=== PATIENT | male | born 1960 | race Caucasian/White ===

== ENCOUNTER 2017-01-13 08:37 | Emergency (ER) | payer OTHER ==
[~2017-01-13 08:37] MED LIST: BLOOD PRESSURE PILL; HYDRODIURIL25 MG PO; LISINOPRIL HCTZ1 TA1 PO; NAPROSYN500 MG PO; NORCO 325 MG-51 TAB PO; PARAFON FORTE500 MG PO
[2017-01-13] MEDS ORDERED: LISINOPRIL10 M1 PO (08:42)
[2017-01-13] MEDS ORDERED: ZESTRIL10 MG PO (08:56)
[2017-01-13] MEDS ORDERED: LISINOPRIL HCTZ1 TA1 PO (08:56)
== END 2017-01-13 09:01 | disposition home or self-care (01) ==
LOC: ED 08:37
DX: Z76.0 Encounter for issue of repeat prescription (principal); I10 Essential (primary) hypertension; Z79.899 Other long term (current) drug therapy

== ENCOUNTER → 2017-08-29 | Outpatient (CLI) | payer OTHER ==
[~2017-08-29] MED LIST changes: +LISINOPRIL10 M1 PO; +ZESTRIL10 MG PO
[2017-08-29 10:27] LABS: BASO % 0.4 % (0.0-1.0); EOS # 0.3 10*3/uL (0.0-0.4); EOS % 2.6 % (1.0-4.0); HEMATOCRIT 40.4 % (42.0-52.0); HEMOGLOBIN 12.3 g/dl (14.0-18.0); LYMPH # 3.4 10*3/uL (1.3-4.4); LYMPH % 30.9 % (27.0-41.0); MEAN CELL VOLUME 80.3 fl (80.0-94.0); MEAN CORPUSCULAR HGB 24.5 pg (27.0-31.0); MEAN CORPUSCULAR HGB CONC 30.4 g/dl (33.0-37.0); MEAN PLATELET VOLUME 8.9 fl (9.6-12.3); MONO # 0.7 10*3/uL (0.1-1.0); MONO % 6.3 % (3.0-9.0); NEUT # 6.6 10*3/uL (2.3-7.9); NEUT % 59.5 % (47.0-73.0); PLATELET COUNT AUTOMATED 449 10*3/uL (130-400); RED BLOOD COUNT 5.03 10*6/uL (4.50-5.90); RED CELL DISTRI WIDTH 16.6 % (0-14.5)
[2017-08-29 10:53] LABS: ALBUMIN 3.2 gm/dl (3.1-4.5); CREATININE 1.54 mg/dL (0.70-1.30); POTASSIUM 3.8 mmol/L (3.5-5.1); TOTAL PROTEIN 8.3 gm/dL (6.4-8.2)
[2017-08-30 15:08] LABS: ANTICARDIOLIPIN AB, IGG, QN <9 GPL U/mL (0-14); ANTICARDIOLIPIN AB, IGM, QN <9 MPL U/mL (0-12); CARDIOLIPIN AB IGA 161836 <9 APL U/mL (0-11)
[2017-08-30 18:07] LABS: BETA-2 GLYCOPROTEIN I AB,IGA <9 (0-25); BETA-2 GLYCOPROTEIN I AB,IGG 11 (0-20); BETA-2 GLYCOPROTEIN I AB,IGM <9 (0-32)
[2017-08-31 17:07] LABS: DILUTE PROTHROMBIN TIME 51.2 sec (0.0-55.0); DPT CONFIRM RATIO 1.24 Ratio (0.00-1.40); LUPUS DRVVT 49.3 sec (0.0-47.0); LUPUS REFLEX INTERPRETATION Comment: (.); PROTEIN S-FUNCTIONAL 164525 81 % (63-140); PTT-LA 32.2 sec (0.0-51.9); THROMBIN TIME 21.9 sec (0.0-23.0)
== END | disposition home or self-care (01) ==
LOC: US 07:30 → LAB 08:48
PROVIDERS: Internal Medicine Hematology & Oncology
DX: I26.99 Other pulmonary embolism without acute cor pulmonale (principal)

== ENCOUNTER → 2017-12-08 | Outpatient (CLI) | payer OTHER ==
[2017-12-08 09:00] LABS: BILIRUBIN NEGATIVE (NEGATIVE); BLOOD TRACE-LYSED (NEGATIVE); CLARITY SL CLOUDY (CLEAR); COLOR YELLOW (YELLOW); GLUCOSE NEGATIVE (NEGATIVE); KETONE NEGATIVE (NEGATIVE); LEUKO ESTERASE NEGATIVE (NEGATIVE); NITRITE NEGATIVE (NEGATIVE); SPECIFIC GRAVITY 1.025 (1.005-1.030); UROBILINOGEN 0.2 E.U./dl (0.2-1.0)
[2017-12-08 09:21] LABS: BASO # 0.1 10*3/uL (0.0-0.1); BASO % 0.6 % (0.0-1.0); EOS # 0.3 10*3/uL (0.0-0.4); EOS % 2.5 % (1.0-4.0); HEMATOCRIT 43.7 % (42.0-52.0); HEMOGLOBIN 13.4 g/dl (14.0-18.0); LYMPH # 3.7 10*3/uL (1.3-4.4); LYMPH % 31.5 % (27.0-41.0); MEAN CELL VOLUME 83.7 fl (80.0-94.0); MEAN CORPUSCULAR HGB 25.7 pg (27.0-31.0); MEAN CORPUSCULAR HGB CONC 30.7 g/dl (33.0-37.0); MEAN PLATELET VOLUME 9.3 fl (9.6-12.3); MONO # 0.7 10*3/uL (0.1-1.0); MONO % 6.2 % (3.0-9.0); NEUT # 6.9 10*3/uL (2.3-7.9); NEUT % 58.9 % (47.0-73.0); PLATELET COUNT AUTOMATED 404 10*3/uL (130-400); RED BLOOD COUNT 5.22 10*6/uL (4.50-5.90); RED CELL DISTRI WIDTH 14.5 % (0-14.5); WHITE BLOOD COUNT 11.7 10*3/uL (4.8-10.8)
[2017-12-08 09:32] LABS: ALBUMIN 3.3 gm/dl (3.1-4.5); CREATININE 1.53 mg/dL (0.70-1.30); PHOSPHOROUS 3.7 mg/dL (2.5-4.9); POTASSIUM 3.4 mmol/L (3.5-5.1)
[2017-12-08 10:15] LABS: PTH INTACT 121.4 pg/mL (14.0-72.0); VITAMIN D, 25-HYDROXY 18.5 ng/mL (30-100)
[2017-12-08 10:34] LABS: BACTERIA 1+; EPITHELIAL CELLS 0-2; WBC 0-2 wbc/hpf (0-5)
== END | disposition home or self-care (01) ==
LOC: LAB 08:38
PROVIDERS: Internal Medicine Nephrology
DX: N18.3 Chronic kidney disease, stage 3 (moderate) (principal)

== ENCOUNTER → 2018-05-24 | Outpatient (CLI) | payer OTHER ==
[2018-05-24 09:38] LABS: BASO # 0.1 10*3/uL (0.0-0.1); BASO % 0.5 % (0.0-1.0); EOS # 0.4 10*3/uL (0.0-0.4); EOS % 2.8 % (1.0-4.0); HEMATOCRIT 36.6 % (42.0-52.0); HEMOGLOBIN 11.6 g/dl (14.0-18.0); LYMPH # 2.9 10*3/uL (1.3-4.4); LYMPH % 22.4 % (27.0-41.0); MEAN CELL VOLUME 83.8 fl (80.0-94.0); MEAN CORPUSCULAR HGB 26.5 pg (27.0-31.0); MEAN CORPUSCULAR HGB CONC 31.7 g/dl (33.0-37.0); MEAN PLATELET VOLUME 8.5 fl (9.6-12.3); MONO # 0.9 10*3/uL (0.1-1.0); MONO % 6.7 % (3.0-9.0); NEUT # 8.7 10*3/uL (2.3-7.9); NEUT % 67.3 % (47.0-73.0); PLATELET COUNT AUTOMATED 468 10*3/uL (130-400); RED BLOOD COUNT 4.37 10*6/uL (4.50-5.90); RED CELL DISTRI WIDTH 14.2 % (0-14.5)
[2018-05-24 09:39] LABS: BILIRUBIN NEGATIVE (NEGATIVE); BLOOD TRACE-INTACT (NEGATIVE); CLARITY CLEAR (CLEAR); COLOR YELLOW (YELLOW); GLUCOSE NEGATIVE (NEGATIVE); KETONE NEGATIVE (NEGATIVE); LEUKO ESTERASE NEGATIVE (NEGATIVE); NITRITE NEGATIVE (NEGATIVE); UROBILINOGEN 0.2 E.U./dl (0.2-1.0)
[2018-05-24 10:04] LABS: ALBUMIN 3.1 gm/dl (3.1-4.5); CREATININE 1.63 mg/dL (0.70-1.30); PHOSPHOROUS 3.2 mg/dL (2.5-4.9); POTASSIUM 3.4 mmol/L (3.5-5.1)
[2018-05-24 10:36] LABS: VITAMIN D, 25-HYDROXY 24.7 ng/mL (30-100)
[2018-05-24 10:37] LABS: PTH INTACT 128.7 pg/mL (18.5-88.0)
== END | disposition home or self-care (01) ==
LOC: LAB 09:12
PROVIDERS: Internal Medicine Nephrology
DX: N25.81 Secondary hyperparathyroidism of renal origin (principal); N18.3 Chronic kidney disease, stage 3 (moderate)

== ENCOUNTER → 2018-08-04 | Outpatient (CLI) | payer BC ==
[~2018-08-04] MED LIST changes: +ACTOS15 M1 PO; +ASPIRIN ADULT L81 M2 PO; +VITAMIN D50000 UNIT PO; +XARELTO1 EACH PO; +ZESTORETIC 20-1 EACH PO
== END | disposition home or self-care (01) ==
LOC: WOUNDCARE 01:50
DX: I87.313 Chronic venous hypertension (idiopathic) with ulcer of bilateral lower extremity (principal); L97.811 Non-pressure chronic ulcer of other part of right lower leg limited to breakdown of skin; L97.821 Non-pressure chronic ulcer of other part of left lower leg limited to breakdown of skin; I73.9 Peripheral vascular disease, unspecified; I87.2 Venous insufficiency (chronic) (peripheral); Z87.891 Personal history of nicotine dependence

== ENCOUNTER → 2018-08-07 | Outpatient (CLI) | payer BC | END | disposition home or self-care (01) | LOC: WOUNDCARE 08:26 | DX: I87.313 Chronic venous hypertension (idiopathic) with ulcer of bilateral lower extremity (principal); L97.811 Non-pressure chronic ulcer of other part of right lower leg limited to breakdown of skin; L97.821 Non-pressure chronic ulcer of other part of left lower leg limited to breakdown of skin; I73.9 Peripheral vascular disease, unspecified; Z87.891 Personal history of nicotine dependence ==

== ENCOUNTER → 2018-08-13 | Outpatient (CLI) | payer BC | END | disposition home or self-care (01) | LOC: WOUNDCARE 02:21 | DX: I87.313 Chronic venous hypertension (idiopathic) with ulcer of bilateral lower extremity (principal); L97.822 Non-pressure chronic ulcer of other part of left lower leg with fat layer exposed; L97.811 Non-pressure chronic ulcer of other part of right lower leg limited to breakdown of skin; I73.9 Peripheral vascular disease, unspecified; Z87.891 Personal history of nicotine dependence ==

== ENCOUNTER 2018-08-18 14:55 | Inpatient (IN) | payer BC ==
[~2018-08-18] VITALS: Ht 172.7 cm; Wt 123.4 kg
--- NOTE | ~2018-08-18 | EKG ---
[facility], [place] ELECTROCARDIOGRAM REPORT NAME: MIGUEL ANGEL NETTLES JR UNIT #: [id number] ROOM: 411 DOCTOR: SU DRAFT REPORT BIRTHDATE: [birth year] [facility] Test Date: 2018-08-18 Test Time: 15:35:55 Pat Name: MIGUEL ANGEL NETTLES Department: Room: 411 Gender: M Supervisor [employer]: : 1960 Requested By: JOSE CLEVELAND PA-C Order Number: [id number] Reading MD: Víctor Schmid MD Measurements Intervals [place] Rate: 86 P: 49 MN: 188 QRS: 29 QRSD: 101 T: -6 QT: 396 QTc: 474 Interpretive Statements Sinus rhythm Multiple ventricular premature complexes Low voltage, precordial leads Borderline T abnormalities, inferior leads Baseline wander in lead(s) V4 No previous ECG available for comparison Electronically Signed On 08-20-2018 11:21:57 PST by Víctor Schmid MD CM:EKGRPT:ELECTROCARDIOGRAM REPORT [id number] JOSE CLEVELAND PA-C EPIPHANY DRAFT REPORT JOSE CLEVELAND PA-C
--- NOTE | 2018-08-18 07:05 | NUR ---
BEDSIDE REPORT OBTAINED FROM MARY. PATIENT IS AWAKE & ALERT, PATIENT VOICED NO COMPLAINTS. FAMILY AT BEDSIDE, PARTICIPATED IN REPORT. NO S&S OF DISTRESS NOTED, RESP ARE ERND ON ROOM AIR. BED IS LOCKED IN LOWEST POSITION. CALL LIGHT LEFT WITHIN REACH.
[~2018-08-18 14:55] MED LIST changes: -ACTOS15 M1 PO; -ASPIRIN ADULT L81 M2 PO; -VITAMIN D50000 UNIT PO; -XARELTO1 EACH PO; -ZESTORETIC 20-1 EACH PO
[2018-08-18 14:58] VITALS: BP 151/75
[2018-08-18 15:34] LABS: BASO # 0.1 10*3/uL (0.0-0.1); BASO % 0.4 % (0.0-1.0); EOS # 0.3 10*3/uL (0.0-0.4); EOS % 2.4 % (1.0-4.0); HEMATOCRIT 38.2 % (42.0-52.0); HEMOGLOBIN 11.7 g/dl (14.0-18.0); LYMPH # 3.2 10*3/uL (1.3-4.4); LYMPH % 23.8 % (27.0-41.0); MEAN CELL VOLUME 82.2 fl (80.0-94.0); MEAN CORPUSCULAR HGB 25.2 pg (27.0-31.0); MEAN CORPUSCULAR HGB CONC 30.6 g/dl (33.0-37.0); MEAN PLATELET VOLUME 8.7 fl (9.6-12.3); MONO # 0.9 10*3/uL (0.1-1.0); MONO % 6.3 % (3.0-9.0); NEUT % 66.7 % (47.0-73.0); PLATELET COUNT AUTOMATED 493 10*3/uL (130-400); RED BLOOD COUNT 4.65 10*6/uL (4.50-5.90); RED CELL DISTRI WIDTH 14.6 % (0-14.5); WHITE BLOOD COUNT 13.5 10*3/uL (4.8-10.8)
[2018-08-18 15:42] LABS: INTERNATIONAL NORM RATIO 1.1 (2.0-3.5)
[2018-08-18 15:56] LABS: ALBUMIN 2.7 gm/dl (3.1-4.5); ALKALINE PHOSPHATASE 147 U/L (45-117); BUN 53 mg/dl (7-24); CHLORIDE 104 mmol/L (98-107); CREATININE 2.62 mg/dL (0.70-1.30); SGOT/AST 17 IU/L (3-35); SGPT/ALT 17 U/L (12-78); SODIUM 141 mmol/L (136-145)
[2018-08-18 16:02] LABS: TROPONIN I < 0.015 ng/ml (<0.045)
[2018-08-18 17:46] VITALS: BP 115/66
--- NOTE | 2018-08-18 18:00 | NUR ---
Time: 1799 A 58 year old MALE admitted to 4E under services of JOLLY VALENTINE DO, Pt. arrived via wheel chair from ER. Chief complaint: BLOOD CLOT IN LOWER EXTREMITY. BELÉN WARD
[2018-08-18] MEDS ORDERED: ZESTORETIC 20-1 EACH PO (18:01)
--- NOTE | 2018-08-18 18:01 | NUR ---
RECEIVED PATIENT FROM ER. AT BEDSIDE. ADMISSION COMPLETE
[2018-08-18] MEDS ORDERED: VITAMIN D50000 UNIT PO (18:02)
--- NOTE | 2018-08-18 18:05 | NUR ---
CALLED PATIENTS PHARMACY FOR UPDATED MEDICATION LIST, UPDATED ON HOME MEDIATION LIST. NOTIFY PHYSICIAN OF ADMISSION.NOTIFIED OF OPEN WOUNDS TO BILATERAL LOWER EXTREMITIES
--- NOTE | 2018-08-18 19:05 | NUR ---
BEDSIDE REPORT OBTAINED FROM MARY. PATIENT IS AWAKE & ALERT, VOICED NO COMPLAINTS. FAMILY AT BEDSIDE, PARTICIPATED IN REPORT. NO S&S OF DISTRESS NOTED, RESP ARE ERND ON ROOM AIR. BED IS LOCKED IN LOWEST POSITION, CALL LIGHT LEFT WITHIN REACH.
[2018-08-18 20:00] VITALS: BP 136/80
--- NOTE | 2018-08-18 20:40 | NUR ---
INFORMED OF PODIATRY CONSUST. STATE TO PLACE STAT ARTERIAL US BLE IN AM 08/19.
--- NOTE | 2018-08-18 20:52 | NUR ---
HEPARIN BOLUS OF 5,000 UNITS INITIATED PER HEPARIN PROTOCOL, @18U/KG/HR 22.1CC/HR. DOREEN PEDRO CONFIRMED.
--- NOTE | 2018-08-18 21:34 | NUR ---
OFFICE CALLED AND INFORMED OF CONSULT. STATED THEY WILL LEAVE HIM A MESSAGE.
--- NOTE | 2018-08-18 21:42 | NUR ---
INFORMED OF CONSULT. NO NEW ORDERS AT THIS TIME.
[2018-08-19] VITALS: BP 96/72
[2018-08-19 03:19] LABS: BASO # 0.1 10*3/uL (0.0-0.1); BASO % 0.5 % (0.0-1.0); EOS # 0.4 10*3/uL (0.0-0.4); EOS % 2.6 % (1.0-4.0); HEMATOCRIT 34.8 % (42.0-52.0); HEMOGLOBIN 10.5 g/dl (14.0-18.0); MEAN CELL VOLUME 82.9 fl (80.0-94.0); MEAN CORPUSCULAR HGB CONC 30.2 g/dl (33.0-37.0); MEAN PLATELET VOLUME 8.4 fl (9.6-12.3); MONO # 0.9 10*3/uL (0.1-1.0); NEUT % 59.5 % (47.0-73.0); PLATELET COUNT AUTOMATED 421 10*3/uL (130-400); RED CELL DISTRI WIDTH 14.7 % (0-14.5); WHITE BLOOD COUNT 13.5 10*3/uL (4.8-10.8)
[2018-08-19 03:30] LABS: ACT PARTIAL THROMBO TIME 52.3 SECONDS (20.8-31.5); INTERNATIONAL NORM RATIO 1.3 (2.0-3.5)
--- NOTE | 2018-08-19 03:30 | NUR ---
HEPARIIN DRIP CHANGED PER PROTOCOL. NOW FLOWING AT 24.6CC/HR @20U/KG/HR. DOREEN PEDRO PRESENT FOR DOSAGE CHANGES.
[2018-08-19 03:33] LABS: CREATININE 2.2 mg/dL (0.70-1.30); POTASSIUM 3.7 mmol/L (3.5-5.1)
[2018-08-19 03:43] LABS: THYROID STIM HORMONE (HS) 1.53 uIU/ml (0.358-4.75)
--- NOTE | 2018-08-19 04:00 | NUR ---
SLEEPING. CALL LIGHT LEFT WITHIN REACH
--- NOTE | 2018-08-19 04:26 | NUR ---
24 HR chart check completed.
--- NOTE | 2018-08-19 06:06 | NUR ---
INFORMED THAT PATIENT IS REQUESTING SOMETHING FOR HIS COUGH. STATES HE WILL PLACE AN ORDER.
[2018-08-19 06:59] LABS: VITAMIN D, 25-HYDROXY 21.4 ng/mL (30-100)
--- NOTE | 2018-08-19 07:48 | NUR ---
Spoke with Dr. Wiseman regarding patient wanting to follow up with Dr. Florentino and not podiatry while he is here. Patient stated he follows with him in the wound care center and wants to continue following while he is inpatient.
--- NOTE | 2018-08-19 07:49 | NUR ---
YOON QUEZADAMIGUEL ANGEL [id number] Please refer to the physician's history and physical for past medical history, comorbid conditions, and allergies. Diagnosis: DVT Catrachito Score: 22,LOW OR NO RISK WOUND DESCRIPTIONS: Location of the wound: left medial lower leg Thickness: Full Size: 4.7cm x 1.8cm x 0.1cm Tunneling: none Undermining: none Sinus Tract: none Presence of Exudate: Serosanguineous Amount: Moderate Color: Yellow, red Odor: None Periwound Skin Appearance: Erythema Wound edges: approximated Pain (associated with wound): none at time of assessment How does patient state this happened? pt stated he has been following in the wound care center for these areas for a little while and wants to continue following with them. Location of the wound: right anterior aspect of lower leg proximal Thickness: Full Size: 6.0cm x 3.2cm x 0.1cm Tunneling: none Undermining: none Sinus Tract: none Presence of Exudate: Serosanguineous Amount: Moderate Color: Yellow, red Odor: None Periwound Skin Appearance: Normal Wound edges: approximated Pain (associated with wound): none at time of assessment How does patient state this happened? pt stated he has been following in the wound care center for these areas for a little while and wants to continue following with them. Location of the wound: right anterior aspect of lower leg distal Thickness: Full Size: 1.7cm x 0.7cm x <0.1cm Tunneling: none Undermining: none Sinus Tract: none Presence of Exudate: Serosanguineous Amount: Moderate Color: Yellow, red Odor: None Periwound Skin Appearance: Erythema Wound edges: approximated Pain (associated with wound): none at time of assessment How does patient state this happened? pt stated he has been following in the wound care center for these areas for a little while and wants to continue following with them. Location of the wound: right lateral lower extremity proximal Thickness: Full Size: 0.4cm x 0.6cm x <0.1cm Tunneling: none Undermining: none Sinus Tract: none Presence of Exudate: Serosanguineous Amount: Moderate Color: Yellow, red Odor: None Periwound Skin Appearance: Erythema Wound edges: approximated Pain (associated with wound): none at time of assessment How does patient state this happened? pt stated he has been following in the wound care center for these areas for a little while and wants to continue following with them. Surface the patient is resting on: Isoflex SKIN PREVENTION RECOMMENDATION: 1. Pressure redistribution support surface as appropriate 2. Elevate heels 3. Remove boots/TEDS every shift and reapply 4. Head of bed 30 degrees as tolerated 5. Assess nutrition and hydration 6. Manage moisture 7. Avoid the use of containment devices while in bed 8. Use absorptive products on surfaces limit layers of linens on bed 9. Turn and reposition every 1-2 hours in bed and every 1 hour in chair as tolerated 10. Weight shifts every 15 minutes while up in chair 11. Offloading with pillows or device to keep heels elevated off bed 12. Monitor skin at least every shift 13. Inspect under medical devices twice a day WOUND TREATMENT RECOMMENDATIONS: Venous and arterial studies of BLE Consult Dr. Florentino for possible debridement per pt request follows in wound care center. Consult podiatry for toenail care. Full thickness guidelines: Cleanse right lateral lower extremity proximal, right anterior aspect of lower leg distal, right anterior aspect of lower leg proxima and left medial lower leg with nss and apply sureprep around the wound therahoney to wound bed cover with maxorb then apply abd pad and lightly wrap with kerlix daily and prn for soiling. Patient wants appointment cancelled in the wound care center for tomorrow and rescheduled for next in the am with Dr. Florentino.
[2018-08-19 08:00] VITALS: BP 118/62
--- NOTE | 2018-08-19 08:45 | NUR ---
Appointment for wound care center on 08/20/18 was cancelled since patient is inpatient and rescheduled for 08/27/18 at 8:00am.
--- NOTE | 2018-08-19 09:00 | NUR ---
Nonprofit Manager in to talk to patient. Patient states lives at home with . There are few steps in the home. Physician: martin billings [facility]: [facility] [place] health services: none Patient's level of ADLs: INDEPENDENT Patient has working utilities: all working DME: none Follow-up physician's appointment after d/c: will be made by hospitalist nurse director upon discharge Does patient want to access PORTAL?: no Discharge plan discussed with patient, patient lives at home with , is independent in adls and ambulation, works, drives, patient states he will be going home when able, patient also stated he would like to follow up in the wound clinic when discharged, patient denies any other needs at this time. DELICIA NATION
[2018-08-19 09:09] LABS: ACT PARTIAL THROMBO TIME 54.9 SECONDS (20.8-31.5); INTERNATIONAL NORM RATIO 1.2 (2.0-3.5)
--- NOTE | 2018-08-19 09:33 | NUR ---
Dr. Wiseman notified of wound care recommendations.
[2018-08-19 12:00] VITALS: BP 126/77
[2018-08-19] MEDS ORDERED: ASPIRIN ADULT L81 M2 PO (13:51)
[2018-08-19 16:00] VITALS: BP 141/71
[2018-08-19 20:00] VITALS: BP 144/83
--- NOTE | 2018-08-19 20:06 | NUR ---
TESSALON PERLES GIVEN FOR COUGH.
--- NOTE | 2018-08-19 21:00 | NUR ---
DENIES COUGH. FELA MA EFFECTIVE.
[2018-08-20] VITALS: BP 142/84
[2018-08-20 06:25] LABS: ALBUMIN 2.3 gm/dl (3.1-4.5); CREATININE 1.65 mg/dL (0.70-1.30); POTASSIUM 3.5 mmol/L (3.5-5.1)
[2018-08-20 06:28] LABS: BASO # 0.1 10*3/uL (0.0-0.1); BASO % 0.5 % (0.0-1.0); EOS # 0.4 10*3/uL (0.0-0.4); EOS % 3.1 % (1.0-4.0); LYMPH # 3.4 10*3/uL (1.3-4.4); MEAN CELL VOLUME 82.8 fl (80.0-94.0); MEAN CORPUSCULAR HGB 25.3 pg (27.0-31.0); MEAN CORPUSCULAR HGB CONC 30.6 g/dl (33.0-37.0); MONO # 0.8 10*3/uL (0.1-1.0); MONO % 7.1 % (3.0-9.0); NEUT # 7.1 10*3/uL (2.3-7.9); PLATELET COUNT AUTOMATED 463 10*3/uL (130-400); RED BLOOD COUNT 4.35 10*6/uL (4.50-5.90); RED CELL DISTRI WIDTH 14.7 % (0-14.5); WHITE BLOOD COUNT 11.8 10*3/uL (4.8-10.8)
[2018-08-20 08:00] VITALS: BP 138/70
--- NOTE | 2018-08-20 09:27 | NUR ---
PHYSICAL THERAPY 1:1 Time: Pain on a scale of 0-10 > Prior to treatment: 0/10 Post treatment: 0/10 Progress note: Pt seen on this date for initial physical therapy assessment; please refer to pt's chart for details. Pt performed supine <-> sit with I. He performed sit <-> stand with I. He ambulated through hallway for 250' x 2 with 1 standing rest break due ot fatigue/SOB. He demonstrate shortened strides and slowed speed while walking with significant lateral sway. He demonstrated F/F+ balance. He has 27 steps to enter his home but this was not completed at this time due to fatigue with the walking. ANNIA TAYLOR S PT
--- NOTE | 2018-08-20 09:30 | NUR ---
Dr. Wiseman notified of wound care recommendations.
--- NOTE | 2018-08-20 10:52 | NUR ---
NOTIFIED OF CONSULT FOR NAIL CARE
[2018-08-20] MEDS ORDERED: ACTOS15 M1 PO (11:50)
[2018-08-20] MEDS ORDERED: XARELTO1 EACH PO (11:50)
[2018-08-20 12:00] VITALS: BP 124/64
--- NOTE | 2018-08-20 12:53 | NUR ---
Nutritional Support Services Notes: Instucted patient on 1800 calorie diabetic diet. Diet copy given to patient. Patient normally eats 1 meal daily, discussed risks. Encouraged 3 meals daily and a night snack with more regular meal times. Patient asked questions about specific food choices. does cooking at home and will follow up with as able. Encouraged follow up if needed. Ria NG Dietetic Student Meseret Cruz RDN, LD
--- NOTE | 2018-08-20 15:18 | NUR ---
Discharge instructions reviewed with patient/family. Patient receptive and verbalizes understanding. Follow-up care arranged. Written instructions given to patient/family. RUBEN MUNOZ
[2018-08-21 14:11] LABS: ANTICARDIOLIPIN AB, IGG, QN <9 GPL U/mL (0-14); ANTICARDIOLIPIN AB, IGM, QN <9 MPL U/mL (0-12); CARDIOLIPIN AB IGA 161836 <9 APL U/mL (0-11)
[2018-08-22 01:10] LABS: PTT-LA 42.4 sec (0.0-51.9)
[2018-08-22 09:11] LABS: LUPUS DRVVT 151.3 sec (0.0-47.0)
[2018-08-22 13:05] LABS: ANTI-THROMBIN III ACTIVITY 115 % (75-135); PROTEIN S, FREE 96 % (57-157); PROTEIN S, TOTAL 149 % (60-150)
--- NOTE | 2018-08-24 07:57 | NUR ---
PHYSICAL THERAPY CO-SIGN I approve of the Phyical Therapy notes written above. JAQUAN PRICE PT
[2018-08-24 11:09] LABS: LUPUS REFLEX INTERPRETATION Comment: (.)
== END 2018-08-20 15:18 | disposition home or self-care (01) | DRG 299 ==
LOC: ED 14:55 → EDHOLD 17:09 → 4E 17:09
PROVIDERS: Family Medicine; Internal Medicine; Internal Medicine Nephrology; Physician Assistant; ADMIT Internal Medicine
PROC: 0HBRXZZ Excision of Toe Nail, External Approach (ICD-10-PCS; principal; 2018-08-19)
DX: I82.411 Acute embolism and thrombosis of right femoral vein (principal); E43 Unspecified severe protein-calorie malnutrition; N17.0 Acute kidney failure with tubular necrosis; L97.812 Non-pressure chronic ulcer of other part of right lower leg with fat layer exposed; Z68.41 Body mass index [BMI] 40.0-44.9, adult; E11.51 Type 2 diabetes mellitus with diabetic peripheral angiopathy without gangrene; N18.3 Chronic kidney disease, stage 3 (moderate); I70.203 Unspecified atherosclerosis of native arteries of extremities, bilateral legs; E11.22 Type 2 diabetes mellitus with diabetic chronic kidney disease; E55.9 Vitamin D deficiency, unspecified; I12.9 Hypertensive chronic kidney disease with stage 1 through stage 4 chronic kidney disease, or unspecified chronic kidney disease; E11.65 Type 2 diabetes mellitus with hyperglycemia; D72.829 Elevated white blood cell count, unspecified; D47.3 Essential (hemorrhagic) thrombocythemia; D64.9 Anemia, unspecified; I83.018 Varicose veins of right lower extremity with ulcer other part of lower leg; Z86.711 Personal history of pulmonary embolism; Z79.899 Other long term (current) drug therapy; Z79.4 Long term (current) use of insulin

== ENCOUNTER → 2018-08-27 | Outpatient (CLI) | payer BC ==
[~2018-08-27] MED LIST changes: +ACTOS15 M1 PO; +ASPIRIN ADULT L81 M2 PO; +VITAMIN D50000 UNIT PO; +XARELTO1 EACH PO; +ZESTORETIC 20-1 EACH PO
== END | disposition home or self-care (01) ==
LOC: WOUNDCARE 03:23
DX: I87.313 Chronic venous hypertension (idiopathic) with ulcer of bilateral lower extremity (principal); L97.821 Non-pressure chronic ulcer of other part of left lower leg limited to breakdown of skin; L97.811 Non-pressure chronic ulcer of other part of right lower leg limited to breakdown of skin; I87.8 Other specified disorders of veins; I73.9 Peripheral vascular disease, unspecified; I26.99 Other pulmonary embolism without acute cor pulmonale; Z87.891 Personal history of nicotine dependence

== ENCOUNTER → 2018-09-03 | Outpatient (CLI) | payer BC | END | disposition home or self-care (01) | LOC: WOUNDCARE 04:54 | DX: I87.313 Chronic venous hypertension (idiopathic) with ulcer of bilateral lower extremity (principal); L97.821 Non-pressure chronic ulcer of other part of left lower leg limited to breakdown of skin; L97.811 Non-pressure chronic ulcer of other part of right lower leg limited to breakdown of skin; I26.99 Other pulmonary embolism without acute cor pulmonale; L92.9 Granulomatous disorder of the skin and subcutaneous tissue, unspecified; I73.9 Peripheral vascular disease, unspecified; Z87.891 Personal history of nicotine dependence ==

== ENCOUNTER → 2018-09-24 | Outpatient (CLI) | payer BC ==
[~2018-09-24] MED LIST changes: +ZYVOX600 MG PO
== END | disposition home or self-care (01) ==
LOC: WOUNDCARE 01:20
DX: I87.313 Chronic venous hypertension (idiopathic) with ulcer of bilateral lower extremity (principal); L97.821 Non-pressure chronic ulcer of other part of left lower leg limited to breakdown of skin; L97.811 Non-pressure chronic ulcer of other part of right lower leg limited to breakdown of skin; I26.99 Other pulmonary embolism without acute cor pulmonale; I73.9 Peripheral vascular disease, unspecified; Z87.891 Personal history of nicotine dependence

== ENCOUNTER → 2018-10-08 | Outpatient (CLI) | payer BC | END | disposition home or self-care (01) | LOC: WOUNDCARE 03:05 | DX: I87.313 Chronic venous hypertension (idiopathic) with ulcer of bilateral lower extremity (principal); L97.821 Non-pressure chronic ulcer of other part of left lower leg limited to breakdown of skin; L97.811 Non-pressure chronic ulcer of other part of right lower leg limited to breakdown of skin; I73.9 Peripheral vascular disease, unspecified; I26.99 Other pulmonary embolism without acute cor pulmonale; I87.8 Other specified disorders of veins; Z87.891 Personal history of nicotine dependence ==

== ENCOUNTER 2018-10-12 10:44 | Inpatient (IN) | payer BC ==
[~2018-10-12] VITALS: Ht 172.7 cm; Wt 114.8 kg
[~2018-10-12 10:44] MED LIST changes: -ZYVOX600 MG PO
[2018-10-12 10:48] VITALS: BP 117/61
[2018-10-12 11:30] LABS: BASO % 0.2 % (0.0-1.0); EOS % 0.3 % (1.0-4.0); HEMATOCRIT 37.4 % (42.0-52.0); HEMOGLOBIN 11.9 g/dl (14.0-18.0); LYMPH # 1.7 10*3/uL (1.3-4.4); LYMPH % 14.7 % (27.0-41.0); MEAN CELL VOLUME 83.1 fl (80.0-94.0); MEAN CORPUSCULAR HGB 26.4 pg (27.0-31.0); MEAN CORPUSCULAR HGB CONC 31.8 g/dl (33.0-37.0); MEAN PLATELET VOLUME 9.6 fl (9.6-12.3); MONO % 8.7 % (3.0-9.0); NEUT # 8.5 10*3/uL (2.3-7.9); NEUT % 75.7 % (47.0-73.0); PLATELET COUNT AUTOMATED 288 10*3/uL (130-400); RED CELL DISTRI WIDTH 17.1 % (0-14.5); WHITE BLOOD COUNT 11.3 10*3/uL (4.8-10.8)
[2018-10-12 11:47] LABS: ACT PARTIAL THROMBO TIME 30.7 SECONDS (20.8-31.5); INTERNATIONAL NORM RATIO 1.1 (2.0-3.5)
[2018-10-12 11:54] LABS: ALBUMIN 2.7 gm/dl (3.1-4.5); CREATININE 2.28 mg/dL (0.70-1.30); POTASSIUM 3.2 mmol/L (3.5-5.1); TOTAL PROTEIN 8.1 gm/dL (6.4-8.2)
[2018-10-12 14:30] VITALS: BP 130/70
--- NOTE | 2018-10-12 14:30 | NUR ---
The assessment has been completed. FATOU WIN
--- NOTE | 2018-10-12 14:30 | NUR ---
Time: 1429 A 58 year old MALE admitted to 4E under services of DAYANARA VALENTIN DO. Pt. arrived via bed from ER. Chief complaint: RIGHT LEG CELLULITIS. XANDER GRAVES
--- NOTE | 2018-10-12 14:35 | NUR ---
DR. Nabil MCGARRY IN TO SEE PT.
--- NOTE | 2018-10-12 15:10 | NUR ---
DR. MCGARRY AWARE MEDS ARE UPDATED.
[2018-10-12 16:00] VITALS: BP 116/58
[2018-10-12 20:00] VITALS: BP 116/56
--- NOTE | 2018-10-12 22:49 | NUR ---
PATIENT REQUESTED RN TO WRAP LEGS. NO ORDERS PRESENT. MDs AWAITING WOUND CARE RECOMMENDATIONS SINCE PATIENT FOLLOWS WITH WOUND CARE OUTPATIENT. PATIENT STATES "JUST PUT THE WHITE WRAPPY THINGS AROUND MY LEGS SO THEY DON'T DRAIN." OPEN AREAS ON BLL CLEANED WITH NSS. ADAPTIC, ABD PADS, AND WRAPPED WITH KERLIX. PATIENT TOLERATED WELL. DENIES ANY PAIN AT THIS TIME. WILL MONITOR.
--- NOTE | 2018-10-12 22:56 | NUR ---
PATIENT NOW C/O HEADACHE. REQUESTING PO TYLENOL. PO TYLENOL ADMINISTERED PER ORDER. WILL MONITOR.
[2018-10-13] VITALS: BP 105/48
--- NOTE | 2018-10-13 00:29 | NUR ---
EARLIER MEDICATION EFFECTIVE PER PT. NO COMPLAINTS VOICED. WILL MONITOR. CALL LIGHT IN REACH.
[2018-10-13 07:12] LABS: BASO % 0.3 % (0.0-1.0); EOS # 0.2 10*3/uL (0.0-0.4); EOS % 1.4 % (1.0-4.0); HEMATOCRIT 33.5 % (42.0-52.0); HEMOGLOBIN 10.4 g/dl (14.0-18.0); LYMPH # 2.4 10*3/uL (1.3-4.4); MEAN CELL VOLUME 83.8 fl (80.0-94.0); MEAN PLATELET VOLUME 10.3 fl (9.6-12.3); MONO # 1.2 10*3/uL (0.1-1.0); MONO % 9.9 % (3.0-9.0); NEUT % 67.8 % (47.0-73.0); PLATELET COUNT AUTOMATED 309 10*3/uL (130-400); RED CELL DISTRI WIDTH 17.2 % (0-14.5); WHITE BLOOD COUNT 11.8 10*3/uL (4.8-10.8)
--- NOTE | 2018-10-13 07:21 | NUR ---
GUILLERMINA SHAH NOTIFIED OF PATIENT'S WOUNDS BEING DRESSED WITHOUT ORDERS PER PT REQUEST. STATES SHE WILL SEE PATIENT.
[2018-10-13 07:38] LABS: ALBUMIN 2.4 gm/dl (3.1-4.5); POTASSIUM 3.6 mmol/L (3.5-5.1)
[2018-10-13 07:43] LABS: CREATININE 1.77 mg/dL (0.70-1.30); PHOSPHOROUS 2.9 mg/dL (2.5-4.9); TOTAL PROTEIN 7.2 gm/dL (6.4-8.2)
[2018-10-13 08:00] VITALS: BP 120/70
--- NOTE | 2018-10-13 09:00 | NUR ---
Rn Procedure in to talk to patient. Patient states lives at home with . There are few steps in the home. Physician: martin billings [facility]acy: [facility] [place] health services: none Patient's level of ADLs: INDEPENDENT Patient has working utilities: all working DME: none Follow-up physician's appointment after d/c: will be made by hospitalist nurse director upon dischage Does patient want to access PORTAL?: no Discharge plan discussed with patient, patient lives at home with , he is independent in adls and ambulation, works, drives, patient will be going home when able and denies any home needs. DELICIA NATION
--- NOTE | 2018-10-13 11:04 | NUR ---
YOON QUEZADAMIGUEL ANGEL [id number] Please refer to the physician's history and physical for past medical history, comorbid conditions, and allergies. Diagnosis: CELLULITIS OF RT LOWER EXTERMITY Catrachito Score: 17,AT RISK WOUND DESCRIPTIONS: Location of the wound: Right anterior lower extremity distal Thickness: Full Size: 2.5cm x 1.5cm x <0.1cm Tunneling: none Undermining: none Sinus Tract: none Presence of Exudate: Serous Amount: Moderate Color: Yellow, red Odor: None Periwound Skin Appearance: staining Wound edges: approximated Pain (associated with wound): none at time of assessment How does patient state this happened? pt stated he has had these area for quite sometime but they just reopened about 1 week ago. Location of the wound: right lateral aspect of lower extremity Thickness: Full Size: 0.6cm x 0.4cm x <0.1cm Tunneling: none Undermining: none Sinus Tract: none Presence of Exudate: Serous Amount: Moderate Color: Yellow, red Odor: None Periwound Skin Appearance: Normal Wound edges: approximated Pain (associated with wound): none at time of assessment How does patient state this happened? pt stated he has had these area for quite sometime but they just reopened about 1 week ago. Location of the wound: right anterior lower extremity proximal Thickness: Full Size: 0.5cm x 0.4cm x <0.1cm Tunneling: none Undermining: none Sinus Tract: none Presence of Exudate: Serous Amount: Light Color: Yellow, red Odor: None Periwound Skin Appearance: staining Wound edges: approximated Pain (associated with wound): none at time of assessment How does patient state this happened? pt stated he has had these area for quite sometime but they just reopened about 1 week ago. Location of the wound: left medial lower extremity above ankle Thickness: Full Size: 4.4cm x 1.1cm x <0.1cm Tunneling: none Undermining: none Sinus Tract: none Presence of Exudate: Serous Amount: Light Color: Yellow, red Odor: None Periwound Skin Appearance: Normal Wound edges: approximated Pain (associated with wound): none at time of assessment How does patient state this happened? pt stated he has had these area for quite sometime but they just reopened about 1 week ago. Surface the patient is resting on: Isoflex SKIN PREVENTION RECOMMENDATION: 1. Pressure redistribution support surface as appropriate 2. Elevate heels 3. Remove boots/TEDS every shift and reapply 4. Head of bed 30 degrees as tolerated 5. Assess nutrition and hydration 6. Manage moisture 7. Avoid the use of containment devices while in bed 8. Use absorptive products on surfaces limit layers of linens on bed 9. Turn and reposition every 1-2 hours in bed and every 1 hour in chair as tolerated 10. Weight shifts every 15 minutes while up in chair 11. Offloading with pillows or device to keep heels elevated off bed 12. Monitor skin at least every shift 13. Inspect under medical devices twice a day WOUND TREATMENT RECOMMENDATIONS: Consult Dr. Florentino since this is a known patient to him. Cleanse left lower extremity with nss apply sureprep around the wound therahoney to wound bed cover with optifoam gentle. Cleanse right lower extremity with nss and apply sureprep around the wound therahoney to wound bed cover with maxorb II then apply abd pad then lightly wrap with rolled gauze. Heel rasier pro boots to Bilateral heels while in bed.
[2018-10-13 12:00] VITALS: BP 99/54
--- NOTE | 2018-10-13 12:53 | NUR ---
Dr. Matthews notified of wound care recommendations.
[2018-10-13 16:00] VITALS: BP 136/69
--- NOTE | 2018-10-13 18:09 | NUR ---
PT C/O 10/04 PAIN TO BLE. MEDICATED WITH PRN TYLENOL. WILL MONITOR FOR EFFECTIVNESS.
--- NOTE | 2018-10-13 18:30 | NUR ---
PT RESTING AT THIS TIME WITH IV ANTIBIOTIC INFUSING PER ORDER. NO NEEDS VOICED AT THIS TIME, CALL LIGHT WITHIN REACH.
[2018-10-13 20:00] VITALS: BP 131/67
--- NOTE | 2018-10-13 20:26 | NUR ---
NOTIFIED OF PATIENT'S REQUEST FOR SLEEPING PILL. NEW ORDERS TO FOLLOW.
[2018-10-14] VITALS: BP 125/76
--- NOTE | 2018-10-14 01:20 | NUR ---
IV ARABELLA SEGOVIA PER ORDER. PATIENT DENIES ANY NEEDS. WILL MONITOR. CALL LIGHT IN REACH.
[2018-10-14 06:32] LABS: BASO # 0.1 10*3/uL (0.0-0.1); BASO % 0.5 % (0.0-1.0); EOS # 0.3 10*3/uL (0.0-0.4); EOS % 2.8 % (1.0-4.0); HEMATOCRIT 34.3 % (42.0-52.0); HEMOGLOBIN 10.6 g/dl (14.0-18.0); LYMPH % 24.1 % (27.0-41.0); MEAN CELL VOLUME 85.3 fl (80.0-94.0); MEAN CORPUSCULAR HGB 26.4 pg (27.0-31.0); MEAN CORPUSCULAR HGB CONC 30.9 g/dl (33.0-37.0); MONO # 1.2 10*3/uL (0.1-1.0); MONO % 9.5 % (3.0-9.0); NEUT # 7.7 10*3/uL (2.3-7.9); NEUT % 62.5 % (47.0-73.0); PLATELET COUNT AUTOMATED 344 10*3/uL (130-400); RED BLOOD COUNT 4.02 10*6/uL (4.50-5.90); RED CELL DISTRI WIDTH 17.4 % (0-14.5); WHITE BLOOD COUNT 12.3 10*3/uL (4.8-10.8)
[2018-10-14 06:43] LABS: ALBUMIN 2.3 gm/dl (3.1-4.5); CREATININE 1.57 mg/dL (0.70-1.30); POTASSIUM 3.7 mmol/L (3.5-5.1)
[2018-10-14 06:45] LABS: TOTAL PROTEIN 7.5 gm/dL (6.4-8.2)
[2018-10-14 08:00] VITALS: BP 136/69
--- NOTE | 2018-10-14 09:00 | NUR ---
case management visits with patient, patient states he will be going home whena ble and denies any home needs
--- NOTE | 2018-10-14 10:51 | NUR ---
Occupational Therapy evaluation completed on 4 with full eval to follow. Precautions include fall risk d/t RLE wounds and inability to perform Five Times Sit to STand test w/o use of BUEs, low complexity level 17405 via chart review, testing and evaluation. Patient is able to perform all self care at independent level. Recommend home w/ and use of wh walker for max safety in functional mobility. No further OT indicated at this time. Patient in agreement. Thank you. Marielos Greer OTR/L
--- NOTE | 2018-10-14 11:34 | NUR ---
PHYSICAL THERAPY Patient evaluated on 4, full evaluation to follow. Continue with PT as per plan of care with fall, RLE PAIN/EDEMA/WOUNDS and acute debility precautions. Home with out patient PT prn. PAtient is moderate complexity via chart review, tests and evaluation: 10689. Thank you for this referral. Kimi Peterson,PT
[2018-10-14 12:00] VITALS: BP 132/60
--- NOTE | 2018-10-14 12:21 | NUR ---
case management talked with patient regarding paperwork he needs filled out and faxed to his place of employment. patient stated he does not have the paperwork, that human resources at his job has the paperwork and patient needs to contact Angie in human resources but is unable to call her from his hospital room and has no cell phone. case managjc called and left a message for Angie to call case management and fax the necessary paperwork that needs filled out for patient
--- NOTE | 2018-10-14 13:47 | NUR ---
PHYSICAL THERAPY Informed consent given, patient identified by name and , patient presented standing w/ FWW. Dynamic standing balance crossing midline CGA, STS and stand to sit multiple times v/c safe hand placement. 1st attempt TUG test FWW 45 sec CGA, 2nd attempt S/W upon pt request 1min 02sec, pt favored S/W d/t increased feeling of stability. walked 40ft total w/ FWW CGA v/c R heel contact w/ floor, pt states pain in R foot 10 and that he would walk better in shoes. walked 20ft w/ S/W CGA, walked 10ft w/o AD upon pt request Daniela pt presented overexagerated w/s,pt unsteady w/o AD. edu safety w/ AD. Ended treatment w/ pt sitting EOB call light in reach, w/ family visiting.1:1 NURSE EXTERN treatment 20min. CARLOZ HUANG NURSE EXTERN
--- NOTE | 2018-10-14 15:30 | NUR ---
Nutritional Support Services Note: Ht.5'8 Wt.253#. BMI 38.4. Pt is eating 100% of 1800cal diabetic diet as ordered. Providing pt with a nightly snack. Wound to legs noted. Continue to encourage 100% po intake of all meals. Will follow as needed. Discussed with pt need for adequate protein and calorie intake. Meseret Cruz Rdn Ld
[2018-10-14 16:00] VITALS: BP 128/74
[2018-10-14 20:00] VITALS: BP 132/70
--- NOTE | 2018-10-14 21:28 | NUR ---
PATIENT MEDICATED WITH PO RESTORIL PER PRN ORDER TO HELP HIM SLEEP. WILL MONITOR EFFECTIVENESS. CALL LIGHT IN REACH.
--- NOTE | 2018-10-14 23:36 | NUR ---
RESTING IN BED WITH EYES CLOSED. RESPIRATIONS ARE EASY AND REGULAR. NO DISTRESS NOTED. AWAKENS EASILY. DENIES ANY NEEDS OR COMPLAINTS. ENCOURAGED TO USE CALL LIGHT FOR NEEDS. SEE ASSESSMENT INFO.
[2018-10-15] VITALS: BP 124/65
--- NOTE | 2018-10-15 02:37 | NUR ---
RESTING IN BED SUPINE WITH EYES CLOSED. RESPIRATIONS ARE EASY AND REGULAR. NO DISTRESS IS NOTED. CALL LIGHT IS WITHIN REACH. WILL MONITOR.
[2018-10-15 06:32] LABS: BASO # 0.1 10*3/uL (0.0-0.1); BASO % 0.4 % (0.0-1.0); EOS # 0.6 10*3/uL (0.0-0.4); EOS % 4.5 % (1.0-4.0); HEMATOCRIT 31.9 % (42.0-52.0); HEMOGLOBIN 9.6 g/dl (14.0-18.0); LYMPH # 3.1 10*3/uL (1.3-4.4); LYMPH % 25.3 % (27.0-41.0); MEAN CORPUSCULAR HGB 25.9 pg (27.0-31.0); MEAN CORPUSCULAR HGB CONC 30.1 g/dl (33.0-37.0); MEAN PLATELET VOLUME 9.7 fl (9.6-12.3); MONO % 8.1 % (3.0-9.0); NEUT # 7.5 10*3/uL (2.3-7.9); PLATELET COUNT AUTOMATED 360 10*3/uL (130-400); RED BLOOD COUNT 3.71 10*6/uL (4.50-5.90); RED CELL DISTRI WIDTH 17.3 % (0-14.5); WHITE BLOOD COUNT 12.3 10*3/uL (4.8-10.8)
[2018-10-15 06:57] LABS: BUN 17 mg/dl (7-24); CHLORIDE 109 mmol/L (98-107); CREATININE 1.33 mg/dL (0.70-1.30); POTASSIUM 3.6 mmol/L (3.5-5.1); SODIUM 142 mmol/L (136-145)
[2018-10-15 08:00] VITALS: BP 155/89
--- NOTE | 2018-10-15 09:00 | NUR ---
case management talked to Angie from patient's place of employment. per Angie. patient's hospital stays were approved, but the time he was off after the hospital stays was not approved. Angie would need a doctor to fill out the paperwork for his aftercare days to be approved. Barbar[place]umera has spoken to patient's primary care physican who stated he would fill the papework out when he had all of the hospital information. Angie asked that the patient's chart be faxed to Dr Michael Krishnamurthy when patient is medically stable for discharge hospitalist nurse director will fax patient's chart when he is discharged
--- NOTE | 2018-10-15 10:24 | NUR ---
case management visits with patient, patient denies any home needs
--- NOTE | 2018-10-15 11:15 | NUR ---
PHYSICAL THERAPY informed consent given, pt identified by and name, pt presented sitting EOB w/ shoes on. pt states pain in R foot 10/04. STS from chair x5 within 25sec d/t fatigue CGA edu for safe hand placement to not tip over S/W. walked 40ft x2 S/W CGA edu on step through L foot , patient demo better technique second trial. TUG test 58 sec w/ S/W CGA. Dynamic standing balance crossing midline w/ BUE x3, CGA, pt presented multiple LOB able to correct w/o assist. Static standing balance w/o AD e/c 40sec d/t dizziness. Ended treatment pt sitting in chair call light and belongings in reach. 1:1 treatment w/ QUILTER FIXER 19min CARLOZ HUANG QUILTER FIXER
[2018-10-15 12:00] VITALS: BP 138/61
--- NOTE | 2018-10-15 15:12 | NUR ---
PHYSICAL THERAPY informed consent given, pt identified by name and , pt presented sitting EOB, pt states I just woke up about 10 minutes ago, I took a nap after our AM session. STS and stand to sit multiple times CGA, modA first attempt d/t pt being tired. walked S/W CGA 60ft x2 edu step through w/ L foot, pt demo better technique 2nd trial. ended treatment sitting EOB call light and belongings in reach. 1:1 treatment w/ TRANSFORMER BUILDER 10min. CARLOZ HUANG TRANSFORMER BUILDER
[2018-10-15 16:00] VITALS: BP 137/67
[2018-10-15 20:00] VITALS: BP 141/72
--- NOTE | 2018-10-15 20:23 | NUR ---
ASSUMED CARE OF PATIENT. PATIENT IS RESTING IN BED WITH EASY AND REGULAR RESPERS ON ROOM AIR. ASSESSMENT IS COMPLETE WITH NO S/S OF DISTRESS NOTED AT THIS TIME. PATIENT DOES C/O LOWER LEG PAIN RATING IT A 3/10 AND IS REQUESTING TYLENOL. BED IS LOW, LOCKED, AND CALL LIGHT IS WITHIN REACH. SEE SHIFT ASSESSMENT.
[2018-10-16] VITALS: BP 145/69
[2018-10-16 06:58] LABS: HEMATOCRIT 32.9 % (42.0-52.0); HEMOGLOBIN 10.1 g/dl (14.0-18.0); MEAN CELL VOLUME 84.8 fl (80.0-94.0); MEAN CORPUSCULAR HGB CONC 30.7 g/dl (33.0-37.0); MEAN PLATELET VOLUME 9.7 fl (9.6-12.3); PLATELET COUNT AUTOMATED 455 10*3/uL (130-400); RED BLOOD COUNT 3.88 10*6/uL (4.50-5.90); RED CELL DISTRI WIDTH 17.4 % (0-14.5); WHITE BLOOD COUNT 13.4 10*3/uL (4.8-10.8)
[2018-10-16 07:23] LABS: BUN 15 mg/dl (7-24); CHLORIDE 109 mmol/L (98-107); POTASSIUM 3.9 mmol/L (3.5-5.1); SODIUM 142 mmol/L (136-145)
[2018-10-16 07:24] LABS: CREATININE 1.34 mg/dL (0.70-1.30)
[2018-10-16 08:00] VITALS: BP 149/73
[2018-10-16 08:06] LABS: ATYPICAL LYMPHS 3 % (0-0); PLATELET SUFFICIENCY HIGH (NORMAL); TOTAL CELLS COUNTED 100 #CELLS
--- NOTE | 2018-10-16 09:00 | NUR ---
case management visits with patient, patient will be going home when able, patient denies any home needs at this time
--- NOTE | 2018-10-16 10:47 | NUR ---
PHYSICAL THERAPY informed consent given, pt identified by name and , pt presented sitting in chair, pt states I have been getting up without the standard walker, and I feel stable w/o it. edu on safety to use S/W w/o staff assistance. STS and stand to sit x5 SBA in 38sec.TUG test 28 sec w/o AD CGA walked w/o AD CGA 60ft x1, 20ft x1 sitting rests in between. static standing balance E/C w/o AD 17sec d/t dizziness. dynamic standing balance w/o AD crossing midline w/ BUE x4 no LOB presented. ended treatment pt sitting in chair call light and belongings in reach. 1:1 treatment w/ BOX OFFICE MANAGER 17min CARLOZ HUANG BOX OFFICE MANAGER
[2018-10-16 12:00] VITALS: BP 129/61
--- NOTE | 2018-10-16 13:59 | NUR ---
PHYSICAL THERAPY informed consent given, pt identified by name and . pt presented sitting in chair. STS activity x2 w/ rests in between, first trial pt performed 2 STS in 12 sec d/t fatigue, second trial 5 STS 20 sec. pt walked 40ft x2 w/ rests sitting in chair in between w/o AD CGA, w/ one trial using cones focus on weight shift though sharp turns, no added assist required. ended treatment pt sitting in chair w/ belongings and call light in reach. 1:1 treatment w/ TERMINAL OPERATOR 15min. CARLOZ HUANG TERMINAL OPERATOR
--- NOTE | 2018-10-16 15:15 | NUR ---
PHYSICAL THERAPY CO-SIGN I approve of the Phyical Therapy notes written above. JAQUAN PRICE PT
[2018-10-16 16:00] VITALS: BP 151/71
[2018-10-16] MEDS ORDERED: ZYVOX600 MG PO (17:04)
--- NOTE | 2018-10-16 17:40 | NUR ---
Discharge instructions reviewed with patient/family. Patient receptive and verbalizes understanding. Follow-up care arranged. Written instructions given to patient/family. STEVEN ROQUE
--- NOTE | 2018-10-16 17:47 | NUR ---
PATIENT IS REFUSING TO HAVE DRESSINGS TAKEN OFF LEGS TO HAVE DISCHARGE PHOTOS TAKEN AT THIS TIME.
--- NOTE | 2018-10-16 18:01 | NUR ---
PATIENT OFF THE FLOOR WITH FAMILY. ALL BELONGINGS SENT WITH PATIENT
== END 2018-10-16 18:02 | disposition home or self-care (01) | DRG 602 ==
LOC: ED 10:44 → 4E 13:20 → EDHOLD 13:20 → 4E 13:46
PROVIDERS: Internal Medicine; Physician Assistant; ADMIT Internal Medicine
DX: L03.115 Cellulitis of right lower limb (principal); N17.0 Acute kidney failure with tubular necrosis; E43 Unspecified severe protein-calorie malnutrition; L97.201 Non-pressure chronic ulcer of unspecified calf limited to breakdown of skin; R74.0 Nonspecific elevation of levels of transaminase and lactic acid dehydrogenase [LDH]; E87.6 Hypokalemia; L30.4 Erythema intertrigo; I10 Essential (primary) hypertension; I83.002 Varicose veins of unspecified lower extremity with ulcer of calf; D64.9 Anemia, unspecified; R74.8 Abnormal levels of other serum enzymes; E11.22 Type 2 diabetes mellitus with diabetic chronic kidney disease; I12.9 Hypertensive chronic kidney disease with stage 1 through stage 4 chronic kidney disease, or unspecified chronic kidney disease; N18.3 Chronic kidney disease, stage 3 (moderate); E11.51 Type 2 diabetes mellitus with diabetic peripheral angiopathy without gangrene; E87.8 Other disorders of electrolyte and fluid balance, not elsewhere classified; E78.5 Hyperlipidemia, unspecified; I87.2 Venous insufficiency (chronic) (peripheral); E55.9 Vitamin D deficiency, unspecified; E66.9 Obesity, unspecified; A49.02 Methicillin resistant Staphylococcus aureus infection, unspecified site; Z86.718 Personal history of other venous thrombosis and embolism; Z86.711 Personal history of pulmonary embolism; Z82.49 Family history of ischemic heart disease and other diseases of the circulatory system; Z82.0 Family history of epilepsy and other diseases of the nervous system; Z68.38 Body mass index [BMI] 38.0-38.9, adult

== ENCOUNTER → 2018-10-27 | Outpatient (CLI) | payer BC ==
[~2018-10-27] MED LIST changes: +ZYVOX600 MG PO
== END | disposition home or self-care (01) ==
LOC: WOUNDCARE 08:33
DX: I87.313 Chronic venous hypertension (idiopathic) with ulcer of bilateral lower extremity (principal); L97.821 Non-pressure chronic ulcer of other part of left lower leg limited to breakdown of skin; L97.811 Non-pressure chronic ulcer of other part of right lower leg limited to breakdown of skin; I87.8 Other specified disorders of veins; I73.9 Peripheral vascular disease, unspecified; I26.99 Other pulmonary embolism without acute cor pulmonale; Z87.891 Personal history of nicotine dependence

== ENCOUNTER → 2018-11-22 | Outpatient (CLI) | payer BC ==
[2018-11-22 09:59] LABS: BASO # 0.1 10*3/uL (0.0-0.1); BASO % 0.6 % (0.0-1.0); EOS # 0.4 10*3/uL (0.0-0.4); EOS % 4.4 % (1.0-4.0); HEMATOCRIT 36.7 % (42.0-52.0); HEMOGLOBIN 11.2 g/dl (14.0-18.0); LYMPH # 3.1 10*3/uL (1.3-4.4); LYMPH % 31.6 % (27.0-41.0); MEAN CELL VOLUME 88.6 fl (80.0-94.0); MEAN CORPUSCULAR HGB 27.1 pg (27.0-31.0); MEAN CORPUSCULAR HGB CONC 30.5 g/dl (33.0-37.0); MEAN PLATELET VOLUME 9.1 fl (9.6-12.3); MONO # 0.6 10*3/uL (0.1-1.0); MONO % 6.6 % (3.0-9.0); NEUT # 5.5 10*3/uL (2.3-7.9); NEUT % 56.6 % (47.0-73.0); PLATELET COUNT AUTOMATED 430 10*3/uL (130-400); RED BLOOD COUNT 4.14 10*6/uL (4.50-5.90); RED CELL DISTRI WIDTH 16.8 % (0-14.5); WHITE BLOOD COUNT 9.8 10*3/uL (4.8-10.8)
[2018-11-22 10:00] LABS: BILIRUBIN NEGATIVE (NEGATIVE); BLOOD NEGATIVE (NEGATIVE); CLARITY SL CLOUDY (CLEAR); COLOR YELLOW (YELLOW); GLUCOSE NEGATIVE (NEGATIVE); KETONE NEGATIVE (NEGATIVE); LEUKO ESTERASE NEGATIVE (NEGATIVE); NITRITE NEGATIVE (NEGATIVE); UROBILINOGEN 0.2 E.U./dl (0.2-1.0)
[2018-11-22 10:21] LABS: BACTERIA TRACE; MUCOUS TRACE
[2018-11-22 10:21] LABS: CREATININE 1.53 mg/dL (0.70-1.30); PHOSPHOROUS 3.1 mg/dL (2.5-4.9); POTASSIUM 3.6 mmol/L (3.5-5.1)
[2018-11-22 10:53] LABS: PTH INTACT 76.8 pg/mL (18.5-88.0); VITAMIN D, 25-HYDROXY 31.3 ng/mL (30-100)
== END | disposition home or self-care (01) ==
LOC: LAB 09:12
PROVIDERS: Internal Medicine Nephrology
DX: N25.81 Secondary hyperparathyroidism of renal origin (principal); E55.9 Vitamin D deficiency, unspecified; N18.3 Chronic kidney disease, stage 3 (moderate)

== ENCOUNTER → 2019-03-08 | Outpatient (CLI) | payer BC | END | disposition home or self-care (01) | LOC: RESCLI 09:18 | DX: I82.411 Acute embolism and thrombosis of right femoral vein (principal); I12.9 Hypertensive chronic kidney disease with stage 1 through stage 4 chronic kidney disease, or unspecified chronic kidney disease; E11.22 Type 2 diabetes mellitus with diabetic chronic kidney disease; N18.3 Chronic kidney disease, stage 3 (moderate); E78.5 Hyperlipidemia, unspecified; I73.9 Peripheral vascular disease, unspecified; E66.9 Obesity, unspecified; I87.2 Venous insufficiency (chronic) (peripheral); E55.9 Vitamin D deficiency, unspecified; Z79.899 Other long term (current) drug therapy ==

== ENCOUNTER → 2019-06-07 | Outpatient (CLI) | payer BC ==
[2019-06-07 10:05] LABS: BASO % 0.3 % (0.0-1.0); EOS # 0.3 10*3/uL (0.0-0.4); EOS % 3.3 % (1.0-4.0); HEMATOCRIT 43.3 % (42.0-52.0); LYMPH # 3.4 10*3/uL (1.3-4.4); LYMPH % 32.8 % (27.0-41.0); MEAN CELL VOLUME 84.7 fl (80.0-94.0); MEAN CORPUSCULAR HGB 25.4 pg (27.0-31.0); MEAN PLATELET VOLUME 9.3 fl (9.6-12.3); MONO # 0.7 10*3/uL (0.1-1.0); MONO % 6.9 % (3.0-9.0); NEUT # 5.9 10*3/uL (2.3-7.9); NEUT % 56.4 % (47.0-73.0); PLATELET COUNT AUTOMATED 381 10*3/uL (130-400); RED BLOOD COUNT 5.11 10*6/uL (4.50-5.90); RED CELL DISTRI WIDTH 14.8 % (0-14.5); WHITE BLOOD COUNT 10.5 10*3/uL (4.8-10.8)
[2019-06-07 10:10] LABS: BILIRUBIN NEGATIVE (NEGATIVE); BLOOD TRACE-LYSED (NEGATIVE); CLARITY CLEAR (CLEAR); COLOR YELLOW (YELLOW); GLUCOSE NEGATIVE (NEGATIVE); KETONE NEGATIVE (NEGATIVE); LEUKO ESTERASE NEGATIVE (NEGATIVE); NITRITE NEGATIVE (NEGATIVE); SPECIFIC GRAVITY 1.015 (1.005-1.030); UROBILINOGEN 0.2 E.U./dl (0.2-1.0)
[2019-06-07 10:36] LABS: ALBUMIN 3.1 gm/dl (3.1-4.5); BUN 21 mg/dl (7-24); CHLORIDE 106 mmol/L (98-107); CREATININE 1.45 mg/dL (0.70-1.30); PHOSPHOROUS 3.3 mg/dL (2.5-4.9); POTASSIUM 3.8 mmol/L (3.5-5.1); SODIUM 141 mmol/L (136-145)
[2019-06-07 10:46] LABS: PTH INTACT 105.7 pg/mL (18.5-88.0); VITAMIN D, 25-HYDROXY 56.1 ng/mL (30-100)
[2019-06-07 11:04] LABS: BACTERIA TRACE
== END | disposition home or self-care (01) ==
LOC: LAB 09:22
PROVIDERS: Internal Medicine Nephrology
DX: N25.81 Secondary hyperparathyroidism of renal origin (principal); E55.9 Vitamin D deficiency, unspecified; N18.3 Chronic kidney disease, stage 3 (moderate)

== ENCOUNTER → 2019-06-14 | Outpatient (CLI) | payer BC | END | disposition home or self-care (01) | LOC: RESCLI 03:37 | DX: I82.411 Acute embolism and thrombosis of right femoral vein (principal); E78.5 Hyperlipidemia, unspecified; I12.9 Hypertensive chronic kidney disease with stage 1 through stage 4 chronic kidney disease, or unspecified chronic kidney disease; E11.22 Type 2 diabetes mellitus with diabetic chronic kidney disease; N18.3 Chronic kidney disease, stage 3 (moderate); E66.9 Obesity, unspecified; I73.9 Peripheral vascular disease, unspecified; E55.9 Vitamin D deficiency, unspecified; I87.2 Venous insufficiency (chronic) (peripheral); Z79.899 Other long term (current) drug therapy; Z88.8 Allergy status to other drugs, medicaments and biological substances ==

== ENCOUNTER → 2019-08-24 | Outpatient (CLI) | payer BC ==
[2019-08-24 09:20] LABS: BILIRUBIN NEGATIVE (NEGATIVE); BLOOD TRACE-INTACT (NEGATIVE); CLARITY SL CLOUDY (CLEAR); COLOR YELLOW (YELLOW); GLUCOSE NEGATIVE (NEGATIVE); KETONE NEGATIVE (NEGATIVE)
[2019-08-24 09:21] LABS: LEUKO ESTERASE NEGATIVE (NEGATIVE); NITRITE NEGATIVE (NEGATIVE); UROBILINOGEN 0.2 E.U./dl (0.2-1.0)
[2019-08-24 09:35] LABS: BASO # 0.1 10*3/uL (0.0-0.1); BASO % 0.5 % (0.0-1.0); EOS # 0.3 10*3/uL (0.0-0.4); HEMATOCRIT 44.5 % (42.0-52.0); HEMOGLOBIN 13.4 g/dl (14.0-18.0); LYMPH # 3.4 10*3/uL (1.3-4.4); LYMPH % 31.3 % (27.0-41.0); MEAN CELL VOLUME 83.8 fl (80.0-94.0); MEAN CORPUSCULAR HGB 25.2 pg (27.0-31.0); MEAN CORPUSCULAR HGB CONC 30.1 g/dl (33.0-37.0); MEAN PLATELET VOLUME 9.3 fl (9.6-12.3); MONO # 0.9 10*3/uL (0.1-1.0); MONO % 7.8 % (3.0-9.0); NEUT # 6.2 10*3/uL (2.3-7.9); NEUT % 57.1 % (47.0-73.0); PLATELET COUNT AUTOMATED 448 10*3/uL (130-400); RED BLOOD COUNT 5.31 10*6/uL (4.50-5.90); RED CELL DISTRI WIDTH 14.4 % (0-14.5); WHITE BLOOD COUNT 10.9 10*3/uL (4.8-10.8)
[2019-08-24 09:48] LABS: POTASSIUM 3.8 mmol/L (3.5-5.1)
[2019-08-24 10:03] LABS: ALBUMIN 3.2 gm/dl (3.1-4.5); CREATININE 1.57 mg/dL (0.70-1.30); TOTAL PROTEIN 8.4 gm/dL (6.4-8.2)
[2019-08-24 10:07] LABS: BACTERIA TRACE; EPITHELIAL CELLS 0-2; MUCOUS 1+
== END | disposition home or self-care (01) ==
LOC: LAB 08:36
PROVIDERS: Nurse Practitioner Family
DX: I10 Essential (primary) hypertension (principal); N39.0 Urinary tract infection, site not specified

== ENCOUNTER → 2019-08-26 | Outpatient (CLI) | payer BC | END | disposition home or self-care (01) | LOC: CT 00:14 | DX: K80.80 Other cholelithiasis without obstruction (principal); K57.90 Diverticulosis of intestine, part unspecified, without perforation or abscess without bleeding; R31.9 Hematuria, unspecified ==

== ENCOUNTER → 2019-09-06 | Outpatient (CLI) | payer BC | END | disposition home or self-care (01) | LOC: US 15:00 | DX: I82.431 Acute embolism and thrombosis of right popliteal vein (principal) ==

== ENCOUNTER → 2019-09-16 | Outpatient (CLI) | payer BC ==
[2019-09-16 09:43] LABS: BASO # 0.1 10*3/uL (0.0-0.1); BASO % 0.6 % (0.0-1.0); EOS # 0.7 10*3/uL (0.0-0.4); EOS % 4.8 % (1.0-4.0); HEMATOCRIT 41.9 % (42.0-52.0); HEMOGLOBIN 12.7 g/dl (14.0-18.0); LYMPH # 3.4 10*3/uL (1.3-4.4); LYMPH % 24.8 % (27.0-41.0); MEAN CELL VOLUME 84.5 fl (80.0-94.0); MEAN CORPUSCULAR HGB 25.6 pg (27.0-31.0); MEAN CORPUSCULAR HGB CONC 30.3 g/dl (33.0-37.0); MEAN PLATELET VOLUME 9.3 fl (9.6-12.3); MONO # 0.9 10*3/uL (0.1-1.0); MONO % 6.3 % (3.0-9.0); NEUT # 8.8 10*3/uL (2.3-7.9); NEUT % 63.1 % (47.0-73.0); PLATELET COUNT AUTOMATED 425 10*3/uL (130-400); RED BLOOD COUNT 4.96 10*6/uL (4.50-5.90); RED CELL DISTRI WIDTH 14.7 % (0-14.5); RETICULOCYTE % 1.15 % (0.50-2.50); WHITE BLOOD COUNT 13.9 10*3/uL (4.8-10.8)
[2019-09-16 10:15] LABS: POTASSIUM 4.2 mmol/L (3.5-5.1)
[2019-09-16 10:24] LABS: CREATININE 1.96 mg/dL (0.70-1.30); THYROID STIM HORMONE (HS) 2.86 uIU/ml (0.358-4.75); TOTAL PROTEIN 7.9 gm/dL (6.4-8.2)
[2019-09-16 10:56] LABS: FERRITIN 69.4 ng/mL (22.0-322.0); VITAMIN D, 25-HYDROXY 54.7 ng/mL (30-100)
== END | disposition home or self-care (01) ==
LOC: LAB 09:12
PROVIDERS: Family Medicine
DX: R79.89 Other specified abnormal findings of blood chemistry (principal); R53.83 Other fatigue; E55.9 Vitamin D deficiency, unspecified

== ENCOUNTER → 2019-10-15 | Outpatient (CLI) | payer BC | END | disposition home or self-care (01) | LOC: US 10:40 | DX: R59.0 Localized enlarged lymph nodes (principal); Z86.718 Personal history of other venous thrombosis and embolism ==

== ENCOUNTER → 2019-12-30 | Outpatient (CLI) | payer BC ==
[2019-12-30 13:48] LABS: BASO # 0.1 10*3/uL (0.0-0.1); BASO % 0.5 % (0.0-1.0); EOS # 0.4 10*3/uL (0.0-0.4); EOS % 3.7 % (1.0-4.0); HEMATOCRIT 41.4 % (42.0-52.0); LYMPH # 2.6 10*3/uL (1.3-4.4); LYMPH % 25.1 % (27.0-41.0); MEAN CELL VOLUME 85.7 fl (80.0-94.0); MEAN CORPUSCULAR HGB 26.5 pg (27.0-31.0); MEAN CORPUSCULAR HGB CONC 30.9 g/dl (33.0-37.0); MEAN PLATELET VOLUME 9.6 fl (9.6-12.3); MONO # 0.9 10*3/uL (0.1-1.0); MONO % 8.7 % (3.0-9.0); NEUT # 6.5 10*3/uL (2.3-7.9); NEUT % 61.7 % (47.0-73.0); PLATELET COUNT AUTOMATED 353 10*3/uL (130-400); RED BLOOD COUNT 4.83 10*6/uL (4.50-5.90); RED CELL DISTRI WIDTH 14.5 % (0-14.5); WHITE BLOOD COUNT 10.5 10*3/uL (4.8-10.8)
[2019-12-30 14:02] LABS: BILIRUBIN 1+ (NEGATIVE); BLOOD 2+ (NEGATIVE); CLARITY CLEAR (CLEAR); COLOR YELLOW (YELLOW); GLUCOSE NEGATIVE (NEGATIVE); KETONE NEGATIVE (NEGATIVE); LEUKO ESTERASE NEGATIVE (NEGATIVE); NITRITE NEGATIVE (NEGATIVE); UROBILINOGEN 0.2 E.U./dl (0.2-1.0)
[2019-12-30 14:04] LABS: WBC 0-2 wbc/hpf (0-5)
[2019-12-30 14:05] LABS: ALBUMIN 3.2 gm/dl (3.1-4.5); CREATININE 1.62 mg/dL (0.70-1.30); POTASSIUM 3.5 mmol/L (3.5-5.1)
[2019-12-30 14:32] LABS: VITAMIN D, 25-HYDROXY 31.7 ng/mL (30-100)
[2019-12-30 14:33] LABS: PTH INTACT 136.3 pg/mL (18.5-88.0)
== END | disposition home or self-care (01) ==
LOC: LAB 13:15
PROVIDERS: Internal Medicine Nephrology
DX: N18.3 Chronic kidney disease, stage 3 (moderate) (principal); N25.81 Secondary hyperparathyroidism of renal origin; E55.9 Vitamin D deficiency, unspecified

== ENCOUNTER 2020-01-19 08:58 | Emergency (ER) | payer BC ==
[~2020-01-19] VITALS: Ht 172.7 cm; Wt 127.0 kg
== END 2020-01-19 11:13 | disposition home or self-care (01) ==
LOC: ED 08:58
DX: S80.01XA Contusion of right knee, initial encounter (principal); J45.909 Unspecified asthma, uncomplicated; I10 Essential (primary) hypertension; E11.9 Type 2 diabetes mellitus without complications; Z79.899 Other long term (current) drug therapy; Z79.82 Long term (current) use of aspirin; W22.8XXA Striking against or struck by other objects, initial encounter; Y93.89 Activity, other specified; Y92.89 Other specified places as the place of occurrence of the external cause; Y99.0 Civilian activity done for income or pay

== ENCOUNTER 2020-02-10 16:09 | Inpatient (IN) | payer BC, OTHER ==
[2020-02-10] VITALS (8 sets, daily range): BP systolic 106–157; BP diastolic 45–76
[~2020-02-10] VITALS: Ht 172.7 cm; Wt 142.6 kg
--- NOTE | 2020-02-10 16:49 | NUR ---
Spoke with no need to place septic orders at this time since this has placed at this time.
[2020-02-10 17:04] LABS: BASO % 0.2 % (0.0-1.0); HEMATOCRIT 35.7 % (42.0-52.0); LYMPH # 0.7 10*3/uL (1.3-4.4); LYMPH % 5.1 % (27.0-41.0); MEAN CORPUSCULAR HGB 26.1 pg (27.0-31.0); MEAN CORPUSCULAR HGB CONC 32.2 g/dl (33.0-37.0); MEAN PLATELET VOLUME 9.1 fl (9.6-12.3); MONO # 0.5 10*3/uL (0.1-1.0); MONO % 3.9 % (3.0-9.0); NEUT # 12.3 10*3/uL (2.3-7.9); NEUT % 89.7 % (47.0-73.0); PLATELET COUNT AUTOMATED 349 10*3/uL (130-400); RED BLOOD COUNT 4.41 10*6/uL (4.50-5.90); RED CELL DISTRI WIDTH 14.6 % (0-14.5); WHITE BLOOD COUNT 13.8 10*3/uL (4.8-10.8)
[2020-02-10 17:15] LABS: ACT PARTIAL THROMBO TIME 30.5 SECONDS (20.0-32.1); INTERNATIONAL NORM RATIO 1.6 (2.0-3.5)
[2020-02-10 17:21] LABS: ALBUMIN 2.6 gm/dl (3.1-4.5); CREATININE 1.6 mg/dL (0.70-1.30); POTASSIUM 3.2 mmol/L (3.5-5.1)
[2020-02-10 17:24] LABS: TROPONIN I 0.061 ng/ml (<0.045)
[2020-02-10 19:44] LABS: BILIRUBIN NEGATIVE (NEGATIVE); BLOOD 1+ (NEGATIVE); CLARITY CLEAR (CLEAR); COLOR STRAW (YELLOW); GLUCOSE NEGATIVE (NEGATIVE); KETONE NEGATIVE (NEGATIVE); SPECIFIC GRAVITY 1.005 (1.005-1.030); UROBILINOGEN 0.2 E.U./dl (0.2-1.0)
[2020-02-10 19:45] LABS: LEUKO ESTERASE NEGATIVE (NEGATIVE); NITRITE NEGATIVE (NEGATIVE)
--- NOTE | 2020-02-10 19:48 | NUR ---
PT ,SHAUNNA,CALLED AND PROVIDED CURRENT UPDATE ON PT. REPORTS PT HAS HAD INCREASED SWELLING IN HIS BILATERAL LEGS AND GROIN AREA RECENTLY AND ALSO HAD STENTS PLACED IN BOTH LEGS ON November.#[phone] IS CONTACT FOR SHAUNNA WILL UPDATE HER WHEN MORE INFORMATION IS AVAILABLE.
[2020-02-10 19:51] LABS: BACTERIA TRACE; EPITHELIAL CELLS 0-2
--- NOTE | 2020-02-10 20:15 | NUR ---
aware of pt with incotience x2 at this time.Ok to place gutierrez and aware of first 2 liters of fluid infusing at this time and 3rd bag of fluid not hung at this time.
--- NOTE | 2020-02-10 20:15 | NUR ---
In to see pt at this time.Pt is alert and orientated x3.
--- NOTE | 2020-02-10 21:10 | NUR ---
Pt agrees to get pictures taken at this time.
--- NOTE | 2020-02-10 21:28 | NUR ---
Right lower leg is one area noted at 3 by 2cm.Area is scabbed pink and yellow.Left lower leg area is 9 cm by 3.5.Area is unstable and has pus and drainage and yellow drainage noted.
--- NOTE | 2020-02-10 21:39 | NUR ---
[facility] faxed and attempted to call report at this time.
--- NOTE | 2020-02-10 21:41 | NUR ---
Unable to reach call at this time and phone is not working.
--- NOTE | 2020-02-10 21:45 | NUR ---
Talked to 5th floor again and unable to give report at this time.
--- NOTE | 2020-02-10 21:50 | NUR ---
Pt taken to floor on monitor.Pt has all belongings at this time.Pt has glasses and clothing.Report given to Angélica emery and aware that lines are down and she will call .
--- NOTE | 2020-02-10 22:00 | NUR ---
A 59, admitted to , under the services of LANCE Smith DO with a diagnosis of CELLULITIS, ACUTE RESP FAILURE. Chief complaint is CHANGE IN MENTAL STATUS. Patient arrived via ambulance from ER. Monitor applied. Initial assessment completed. Vital signs taken and recorded. LANCE SMITH DO notified of admission to the unit. Orders received. See assessment for past medical history, medications and allergies. Patient and/or family oriented to unit. [facility] visitation policy reviewed. Clothing/patient valuable form completed. LIN JOYCE
--- NOTE | 2020-02-10 22:00 | NUR ---
REDNESS TO GIUSEPPE AREA, NO OPEN AREAS
[2020-02-10] MEDS ORDERED: CLOPIDOGREL75 MG PO (22:31)
[2020-02-10] MEDS ORDERED: XARE20MG PO (22:32)
--- NOTE | 2020-02-10 22:34 | NUR ---
HOME MEDS VERIFIED W/, SURAJ AND UPDATED IN SYSTEM.
--- NOTE | 2020-02-10 22:34 | NUR ---
DR MITCHELL NOTIFIED OF TROPONIN, & MED REC UP TO DATE.
[2020-02-11] VITALS: BP 146/69
--- NOTE | 2020-02-11 00:35 | NUR ---
TYLENOL GIVEN FOR TEMPERATURE OF 102 RECTALLY
--- NOTE | 2020-02-11 00:43 | NUR ---
DR MITCHELL NOTIFIED OF ELEVATED TROPONIN & TEMPERATURE OF 102
--- NOTE | 2020-02-11 01:00 | NUR ---
DR MITCHELL AT BEDSIDE
--- NOTE | 2020-02-11 02:15 | NUR ---
TEMPERATURE 98.6 PATIENT RESTING WITHOUT COMPLAINTS.
[2020-02-11 03:14] LABS: BASO % 0.2 % (0.0-1.0); HEMATOCRIT 34.4 % (42.0-52.0); LYMPH # 0.8 10*3/uL (1.3-4.4); LYMPH % 6.5 % (27.0-41.0); MEAN CELL VOLUME 82.7 fl (80.0-94.0); MEAN CORPUSCULAR HGB 25.5 pg (27.0-31.0); MEAN CORPUSCULAR HGB CONC 30.8 g/dl (33.0-37.0); MEAN PLATELET VOLUME 8.5 fl (9.6-12.3); MONO # 0.6 10*3/uL (0.1-1.0); NEUT # 10.6 10*3/uL (2.3-7.9); NEUT % 87.7 % (47.0-73.0); PLATELET COUNT AUTOMATED 313 10*3/uL (130-400); RED BLOOD COUNT 4.16 10*6/uL (4.50-5.90); RED CELL DISTRI WIDTH 14.9 % (0-14.5); WHITE BLOOD COUNT 12.1 10*3/uL (4.8-10.8)
[2020-02-11 03:32] LABS: ALBUMIN 2.2 gm/dl (3.1-4.5); CREATININE 1.52 mg/dL (0.70-1.30); POTASSIUM 3.6 mmol/L (3.5-5.1); TOTAL PROTEIN 6.2 gm/dL (6.4-8.2)
[2020-02-11 03:33] LABS: FREE T4 1.24 ng/dl (0.76-1.46)
[2020-02-11 03:38] LABS: THYROID STIM HORMONE (HS) 0.527 uIU/ml (0.358-4.75)
--- NOTE | 2020-02-11 03:40 | NUR ---
DR GARCIAS NOTIFIED OF PT'S TROPONIN
--- NOTE | 2020-02-11 05:22 | NUR ---
YOON QUEZADAMIGUEL ANGEL [id number] Please refer to the physician's history and physical for past medical history, comorbid conditions, and allergies. Diagnosis: CELLULITIS OF LEFT LOWER EXTREMITY ACUTE RESPIRAT Catrachito Score: 19,LOW OR NO RISK WOUND DESCRIPTIONS: Wound Number: 1 Location of the wound: right lower leg Thickness: Full Size: 1.9cm x 1.0cm x 0.1cm Tunneling: none Undermining: none Sinus Tract: none Presence of Exudate: Serous Amount: Moderate Color: Red, yellow Odor: None Periwound Skin Appearance: Erythema Wound edges: approximated Pain (associated with wound): none at time of assessment How does patient state this happened? pt states it started the other day but unsure how it started Wound Number: 2 Location of the wound: left lower leg Thickness: Full Size: 7.3cm x 3.7cm x 0.1cm Tunneling: none Undermining: none Sinus Tract: none Presence of Exudate: Serous Amount: Moderate Color: Red, yellow Odor: None Periwound Skin Appearance: Erythema Wound edges: approximated Pain (associated with wound): none at time of assessment How does patient state this happened? pt states it started the other day but unsure how it started Wound Number: 3 Location of the wound: abdominal fold and bilateral groin areas red and blanchable at time of assessment. No open areas noted at time of assessment. No drainage noted at time of assessment. Musty odor noted at time of assessment. Surface the patient is resting on: Position Pro SKIN PREVENTION RECOMMENDATION: 1. Pressure redistribution support surface as appropriate 2. Elevate heels 3. Remove boots/TEDS every shift and reapply 4. Head of bed 30 degrees as tolerated 5. Assess nutrition and hydration 6. Manage moisture 7. Avoid the use of containment devices while in bed 8. Use absorptive products on surfaces limit layers of linens on bed 9. Turn and reposition every 1-2 hours in bed and every 1 hour in chair as tolerated 10. Weight shifts every 15 minutes while up in chair 11. Offloading with pillows or device to keep heels elevated off bed 12. Monitor skin at least every shift 13. Inspect under medical devices twice a day WOUND TREATMENT RECOMMENDATIONS: Cleanse abdominal fold and bilateral groin areas with soap and water and pat areas dry then apply nystatin powder every 8 hours. Venous and arterial studies to bilateral lower extremities due to non healing wounds Consult podiatry for areas to bilateral lower extremities Full thickness guidelines: Cleanse right and left lower extremity with nss and apply sureprep around the wound therahoney sheets to wound bed cover with abd pad and lightly wrap with kerlix daily and prn for soiling. Heel raiser pro boots to bilateral feet while in bed. Patient will follow up in the wound care center on 02/21/2020 at 9:00am with Daria DOCKERY-.
--- NOTE | 2020-02-11 06:03 | NUR ---
cardiology answering service aware of consult
--- NOTE | 2020-02-11 06:11 | NUR ---
ID ANSWERING SERVICE NOTIFIED OF CONSULT
[2020-02-11 06:24] LABS: VITAMIN D, 25-HYDROXY 23.4 ng/mL (30-100)
[2020-02-11 08:00] VITALS: BP 102/60
--- NOTE | 2020-02-11 09:45 | NUR ---
Dr. Matthews notified of wound care recommendations
[2020-02-11 11:47] LABS: ABG BASE EXCESS -3.4 mmol/L (-2.0-2.0); ARTERIAL BLOOD GAS PH 7.404 (7.35-7.45)
--- NOTE | 2020-02-11 11:48 | NUR ---
PHYSICAL THERAPY Physical Therapy evaluation completed on 5E with full evaluation to follow. Low complexity PT evaluation per chart review and evaluation, [id number]. Recommend physical therapy per plan of care and outpatient PT upon discharge. Thank you for this referral. Farheen Matos,PT,DPT
--- NOTE | 2020-02-11 11:56 | NUR ---
DR. KAPLAN NOTIFIED OF CONSULT.
[2020-02-11 12:00] VITALS: BP 136/73
--- NOTE | 2020-02-11 13:38 | NUR ---
[employer] Executive in to talk to patient. Patient states lives at HOME with . There are NO steps in the home. Physician: [facility]: [facility] [place] health services: NONE Patient's level of ADLs: INDEPENDENT Patient has working utilities: YES DME: NONE Follow-up physician's appointment after d/c: WILL BE MADE BY HOSPITALIST NURSE DIRECTOR ON DISCHARGE Does patient want to access PORTAL?: NO Discharge plan PT LIVES AT HOME WITH HIS AND IS INDEPENDETN WITH HIS CARE.. PT IS CONCERNED ABOUT HIS EMPLOYER KNOWING HE IS IN THE HOSPITAL. WANTED ME TO CALL AND MAKE SURE SHE CALLS HIS EMPLOYER AND INFORMS THEM OF HOSPITALIZATION. CALLED NUMBER GIVEN TO ME BY PT, NO ANSWER, LEFT MESSAGE FOR HER TO CALL PT EMPLOYER AND INFORM THEM IN WAS HOSPITALIZED. WILL CONTINUE TO FOLLOW. STATES WILL TRANSPORT HIM HOME. JOE LERMA
[2020-02-11 16:00] VITALS: BP 129/53
--- NOTE | 2020-02-11 16:12 | NUR ---
DR. CORREIA AWARE OF CONSULT.
[2020-02-11 20:00] VITALS: BP 141/79
--- NOTE | 2020-02-11 21:00 | NUR ---
PATIENT ASSESSED WITHOUT INCIDENT, PATIENT DENIES ANY PAIN OR DISTRESS AT THIS TIME. CALL LIGHT WITHIN REACH. WILL CONTINUE TO MONITOR.
[2020-02-12] VITALS: BP 155/78
--- NOTE | 2020-02-12 01:32 | NUR ---
24 HOUR CHART CHECK COMPLETE
[2020-02-12 06:05] LABS: HEMATOCRIT 34.8 % (42.0-52.0); MEAN CELL VOLUME 83.9 fl (80.0-94.0); MEAN CORPUSCULAR HGB 25.5 pg (27.0-31.0); MEAN CORPUSCULAR HGB CONC 30.5 g/dl (33.0-37.0); MEAN PLATELET VOLUME 9.6 fl (9.6-12.3); PLATELET COUNT AUTOMATED 299 10*3/uL (130-400); RED BLOOD COUNT 4.15 10*6/uL (4.50-5.90); RED CELL DISTRI WIDTH 15.2 % (0-14.5); WHITE BLOOD COUNT 9.2 10*3/uL (4.8-10.8)
[2020-02-12 06:21] LABS: CREATININE 1.5 mg/dL (0.70-1.30); POTASSIUM 3.3 mmol/L (3.5-5.1)
[2020-02-12 07:24] LABS: TOTAL CELLS COUNTED 100 #CELLS
[2020-02-12 07:25] LABS: BURR CELLS FEW; PLATELET SUFFICIENCY NORMAL (NORMAL); POLYCHROMASIA SLIGHT; TARGET CELLS FEW
--- NOTE | 2020-02-12 09:12 | NUR ---
NEURO: PT ALERT AND ORIENTED X3, STATES DID NOT SLEEP WELL VITALS: HR-82, TEMP-98.1, BP MANUAL-140/84, RR-20, O2-94% ON 3L PRN. PT CURRENTLY ON OXYGEN PAIN: DENIES ANY PAIN RESPIRATORY: NONPRODUCTIVE COUGH, BREATH SOUNDS ARE CLEAR WITH SOME CRACKLES IN LOWER LEFT LOBE, CARDIOVASCULAR: NORMAL HEART SOUNDS, +3 PITTING EDMEA BILATERALLY LEGS GASTROINTESTINAL:ACTIVE BOWEL SOUNDS, PT STATES LAST BM 0630. BOWEL SOUNDS PRESENT X4 GENITOURINARY: VOIDING YELLOW, USING URINAL, STATES NO BURNING OR DISCOMFORT, SKIN: LOWER LEGS WRAPPED. DRESSING DUE TO BE CHANGED TODAY AT 1200 , NO ABRASIONS OR LESIONS NOTED, SKIN OTHERWISE INTACT. PT APPEARS PALE IN COLOR. DARIN CASTAÑEDA/[place]/ ISMAEL PARHAM
[2020-02-12 09:41] LABS: INTERNATIONAL NORM RATIO 1.2 (2.0-3.5)
[2020-02-12 12:00] VITALS: BP 119/57
[2020-02-12 16:00] VITALS: BP 119/69
--- NOTE | 2020-02-12 16:38 | NUR ---
Vitals BP-124/58, P- 78, RR 22, MAP-72, Temp-98.6, O2-96%, Educated pt on acute respiratory failure, to seek medical help when showing Fever, SOB, fatigue, or weakness. educated on taking meds as prescibed Emptied pt urinal 400mL Output Radha Borroni/NS
[2020-02-12 20:00] VITALS: BP 118/51
--- NOTE | 2020-02-12 22:15 | NUR ---
PT TITRATED TO RA. SATS MAINTAINING 94-96%. PT APPEARS TO BE EDE RA WELL. NO RES DISTRESS OR SOB NOTED AT THIS TIME. WILL CONTINUE TO REASSESS.
[2020-02-13] VITALS: BP 121/57
[2020-02-13 06:36] LABS: BASO % 0.4 % (0.0-1.0); EOS # 0.1 10*3/uL (0.0-0.4); EOS % 0.8 % (1.0-4.0); HEMATOCRIT 36.7 % (42.0-52.0); LYMPH # 2.4 10*3/uL (1.3-4.4); LYMPH % 24.9 % (27.0-41.0); MEAN CELL VOLUME 82.8 fl (80.0-94.0); MEAN CORPUSCULAR HGB 25.5 pg (27.0-31.0); MEAN CORPUSCULAR HGB CONC 30.8 g/dl (33.0-37.0); MEAN PLATELET VOLUME 9.5 fl (9.6-12.3); MONO # 0.9 10*3/uL (0.1-1.0); MONO % 9.3 % (3.0-9.0); NEUT # 6.1 10*3/uL (2.3-7.9); NEUT % 64.2 % (47.0-73.0); PLATELET COUNT AUTOMATED 339 10*3/uL (130-400); RED BLOOD COUNT 4.43 10*6/uL (4.50-5.90); RED CELL DISTRI WIDTH 15.3 % (0-14.5); WHITE BLOOD COUNT 9.5 10*3/uL (4.8-10.8)
[2020-02-13 07:08] LABS: ALBUMIN 2.4 gm/dl (3.1-4.5); POTASSIUM 3.1 mmol/L (3.5-5.1)
[2020-02-13 07:11] LABS: CREATININE 1.5 mg/dL (0.70-1.30); TOTAL PROTEIN 7.3 gm/dL (6.4-8.2)
[2020-02-13 08:00] VITALS: BP 122/74
[2020-02-13 12:00] VITALS: BP 120/78
--- NOTE | 2020-02-13 15:46 | NUR ---
PATIENT REQUESTED TO COME OFF [facility] TO ORDER HER DINNER. PLACED ON 4 L NC. HR 88 SPO2 98%
[2020-02-13 16:00] VITALS: BP 134/65
[2020-02-13 20:00] VITALS: BP 105/76
[2020-02-14] VITALS: BP 156/81
[2020-02-14 06:13] LABS: BASO % 0.3 % (0.0-1.0); EOS # 0.4 10*3/uL (0.0-0.4); EOS % 3.6 % (1.0-4.0); HEMATOCRIT 37.8 % (42.0-52.0); LYMPH # 2.4 10*3/uL (1.3-4.4); LYMPH % 21.1 % (27.0-41.0); MEAN CELL VOLUME 84.2 fl (80.0-94.0); MEAN CORPUSCULAR HGB 25.4 pg (27.0-31.0); MEAN CORPUSCULAR HGB CONC 30.2 g/dl (33.0-37.0); MEAN PLATELET VOLUME 9.6 fl (9.6-12.3); MONO # 1.1 10*3/uL (0.1-1.0); MONO % 9.5 % (3.0-9.0); NEUT # 7.4 10*3/uL (2.3-7.9); PLATELET COUNT AUTOMATED 400 10*3/uL (130-400); RED BLOOD COUNT 4.49 10*6/uL (4.50-5.90); RED CELL DISTRI WIDTH 15.4 % (0-14.5); WHITE BLOOD COUNT 11.5 10*3/uL (4.8-10.8)
--- NOTE | 2020-02-14 06:49 | NUR ---
DR. VALLE NOTIFIED OF CRITICAL VANCO TROUGH OF 25.3. OKAY TO RUN VANCO, SHE SAID PHARMACY WILL ADJUST.
[2020-02-14 06:55] LABS: CREATININE 1.63 mg/dL (0.70-1.30); POTASSIUM 3.4 mmol/L (3.5-5.1)
--- NOTE | 2020-02-14 09:56 | NUR ---
Nutritional Support Services Note: Pt is NPO at this time. Appetite is good, he is eating 100% of all meals. Ht.5'8 Wt.331#. IBW [id number]. Encouraged healthy eating and proper portion sizes for weight loss. Will follow as needed. Meseret Cruz Rdn Ld
--- NOTE | 2020-02-14 10:45 | NUR ---
INFORMED CONSENT OBTAINED FOR A LEXISCAN STRESS TEST WITH . RESTING EKG NSR WITH PVC'S, HT RT 86 WITH A BP OF 140/80. SPO2 91% VIA RA AND CLEAR BREATH SOUNDS. COMPLETED ONE MINUTE OF A LEXISCAN PROTOCOL RECEIVING LEXISCAN 0.4 MG OVER 10 SECONDS. DEVELOPED SOB THAT WAS RELEIVED IN RECOVERY. HAD A PEAK HT RT OF 95, WITH A BP OF 120/80. LAST RECOVERY HT RT OF 85, WITH A BP OF 130/84 AWAITING NUCLEAR IMAGING IN STABLE COMDITION.
--- NOTE | 2020-02-14 11:00 | NUR ---
PHYSICAL THERAPY Patient was out of his room this am for a Stress Test and unavailable at this time for treatment. Will continue per POC as able. Mac Herbert, DOCUMENT MANAGEMENT CONSULTANT
--- NOTE | 2020-02-14 11:10 | NUR ---
Occupational therapy order received and chart reviewed. Patient out of the room for a stress test upon arrival. Will check back at a later date for completion of an OT evaluation. Thank you. Yuli Mena, OTR/L
--- NOTE | 2020-02-14 14:49 | NUR ---
IN TO ROOM WITH DR. ABRAMS. PT IS ASSESSED. ORDERS OBTAINED AND ENTERED. PT'S BED PLACED IN [place] POSITION WITH THE HEAD OF THE BED ELEVATED. KATHY WRAPS PLACED ON PT'S LEGS PER DR. ABRAMS.
--- NOTE | 2020-02-14 14:52 | NUR ---
PT CONTINUES TO DENY NEEDS AT HOME. WILL RETURN HOME WHEN MEDICALLY STABLE. STATES HE WILL TAKE HIM HOME.
[2020-02-14 16:00] VITALS: BP 154/68
[2020-02-14] MEDS ORDERED: ZYVOX600 MG PO (16:49)
[2020-02-14 20:00] VITALS: BP 152/82
[2020-02-15] VITALS: BP 154/62
[2020-02-15 06:23] LABS: BASO % 0.4 % (0.0-1.0); EOS # 0.5 10*3/uL (0.0-0.4); EOS % 4.8 % (1.0-4.0); HEMATOCRIT 37.3 % (42.0-52.0); LYMPH # 2.5 10*3/uL (1.3-4.4); LYMPH % 22.3 % (27.0-41.0); MEAN CELL VOLUME 84.8 fl (80.0-94.0); MEAN CORPUSCULAR HGB 25.5 pg (27.0-31.0); MEAN PLATELET VOLUME 9.5 fl (9.6-12.3); NEUT # 6.9 10*3/uL (2.3-7.9); NEUT % 62.8 % (47.0-73.0); PLATELET COUNT AUTOMATED 397 10*3/uL (130-400); RED CELL DISTRI WIDTH 15.6 % (0-14.5); WHITE BLOOD COUNT 11.1 10*3/uL (4.8-10.8)
[2020-02-15 06:53] LABS: ALBUMIN 2.3 gm/dl (3.1-4.5); POTASSIUM 3.2 mmol/L (3.5-5.1)
[2020-02-15 06:56] LABS: CREATININE 1.53 mg/dL (0.70-1.30)
--- NOTE | 2020-02-15 07:40 | NUR ---
PHYSICAL THERAPY Patient seen this am 1;1 for therapy visit and was resting supine in bed upon therapist arrival. Patient identified by name / and reports no new c/o's at this time. Patient transfers supine to sit, then sit to stand SBA and ambulates without AD, ad paolo in room secondary to Isolation precautions, SBA, 40'x 2, demonstrating slow, steady bony and no LOB. Patient did fatigue upon return to bedside chair and remained with call light, tray table, telephone. Will continue per POC as tolerated, total treatment time 16 minutes. Mac Herbert, FISH AND WILDLIFE BIOLOGIST
[2020-02-15 08:00] VITALS: BP 144/82
[2020-02-15] MEDS ORDERED: VITAMIN D350 MC2 PO (11:59)
[2020-02-15] MEDS ORDERED: ATORVASTATIN CA40 M1 PO (11:59)
[2020-02-15] MEDS ORDERED: TAMSULOSIN HCL0.4 MG PO (11:59)
[2020-02-15] MEDS ORDERED: METOPROLOL SUCC25 M2 PO (11:59)
[2020-02-15] MEDS ORDERED: XARE15TA PO (11:59)
[2020-02-15 12:00] VITALS: BP 138/72
[2020-02-15] MEDS ORDERED: K-TAB10 MEQ PO (12:06)
[2020-02-15] MEDS ORDERED: LASIX40 MG PO (12:06)
--- NOTE | 2020-02-15 15:44 | NUR ---
[facility] Discharge instructions reviewed with patient/family. Patient receptive and verbalizes understanding. Follow-up care arranged. Written instructions given to patient/family. BUBBA PENNINGTON
--- NOTE | 2020-02-16 08:02 | NUR ---
PHYSICAL THERAPY CO-SIGN I approve of the Physical Therapy notes written above. Nancy Gottlieb PT
== END 2020-02-15 15:25 | disposition home or self-care (01) | DRG 871 ==
LOC: ED 16:09 → EDHOLD 18:35 → 5E 18:35 → EDHOLD 19:44 → 5E 20:57
PROVIDERS: Emergency Medicine; Family Medicine; Internal Medicine; Internal Medicine Critical Care Medicine; Registered Nurse; Student in an Organized Health Care Education/Training Program; ADMIT Student in an Organized Health Care Education/Training Program
PROC: 4A02XM4 Measurement of Cardiac Total Activity, External Approach (ICD-10-PCS; principal; 2020-02-14)
PROC: 0HBRXZZ Excision of Toe Nail, External Approach (ICD-10-PCS; principal; 2020-02-14)
PROC: 3E073KZ Introduction of Other Diagnostic Substance into Coronary Artery, Percutaneous Approach (ICD-10-PCS; principal; 2020-02-14)
DX: A41.9 Sepsis, unspecified organism (principal); J96.01 Acute respiratory failure with hypoxia; E43 Unspecified severe protein-calorie malnutrition; N17.0 Acute kidney failure with tubular necrosis; L03.116 Cellulitis of left lower limb; E87.1 Hypo-osmolality and hyponatremia; Z68.42 Body mass index [BMI] 45.0-49.9, adult; I13.0 Hypertensive heart and chronic kidney disease with heart failure and stage 1 through stage 4 chronic kidney disease, or unspecified chronic kidney disease; L03.115 Cellulitis of right lower limb; N39.0 Urinary tract infection, site not specified; R65.20 Severe sepsis without septic shock; N18.3 Chronic kidney disease, stage 3 (moderate); D64.9 Anemia, unspecified; E11.65 Type 2 diabetes mellitus with hyperglycemia; E11.22 Type 2 diabetes mellitus with diabetic chronic kidney disease; I50.9 Heart failure, unspecified; B35.1 Tinea unguium; E55.9 Vitamin D deficiency, unspecified; E66.01 Morbid (severe) obesity due to excess calories; R79.89 Other specified abnormal findings of blood chemistry; I87.2 Venous insufficiency (chronic) (peripheral); B95.62 Methicillin resistant Staphylococcus aureus infection as the cause of diseases classified elsewhere; E11.51 Type 2 diabetes mellitus with diabetic peripheral angiopathy without gangrene; E78.5 Hyperlipidemia, unspecified; E87.6 Hypokalemia; T45.515A Adverse effect of anticoagulants, initial encounter; Z82.49 Family history of ischemic heart disease and other diseases of the circulatory system; Z80.8 Family history of malignant neoplasm of other organs or systems; Z82.0 Family history of epilepsy and other diseases of the nervous system; Z86.718 Personal history of other venous thrombosis and embolism; Z86.711 Personal history of pulmonary embolism; Z86.14 Personal history of Methicillin resistant Staphylococcus aureus infection; Z79.899 Other long term (current) drug therapy; Z79.82 Long term (current) use of aspirin; Z79.01 Long term (current) use of anticoagulants; Y92.89 Other specified places as the place of occurrence of the external cause; Z87.891 Personal history of nicotine dependence

== ENCOUNTER → 2020-04-07 | Outpatient (CLI) | payer BC, OTHER ==
[~2020-04-07] MED LIST changes: +ATORVASTATIN CA40 M1 PO; +CLOPIDOGREL75 MG PO; +K-TAB10 MEQ PO; +LASIX40 MG PO; +METOPROLOL SUCC25 M2 PO; +TAMSULOSIN HCL0.4 MG PO; +VITAMIN D350 MC2 PO; +XARE15TA PO; +XARE20MG PO
[2020-04-07 09:20] LABS: BASO # 0.1 10*3/uL (0.0-0.1); BASO % 0.7 % (0.0-1.0); EOS # 0.4 10*3/uL (0.0-0.4); EOS % 4.4 % (1.0-4.0); HEMATOCRIT 39.1 % (42.0-52.0); LYMPH # 3.1 10*3/uL (1.3-4.4); LYMPH % 31.8 % (27.0-41.0); MEAN CELL VOLUME 84.4 fl (80.0-94.0); MEAN CORPUSCULAR HGB 25.5 pg (27.0-31.0); MEAN CORPUSCULAR HGB CONC 30.2 g/dl (33.0-37.0); MEAN PLATELET VOLUME 8.9 fl (9.6-12.3); MONO # 0.8 10*3/uL (0.1-1.0); MONO % 7.9 % (3.0-9.0); NEUT # 5.3 10*3/uL (2.3-7.9); NEUT % 54.9 % (47.0-73.0); PLATELET COUNT AUTOMATED 372 10*3/uL (130-400); RED BLOOD COUNT 4.63 10*6/uL (4.50-5.90); RED CELL DISTRI WIDTH 16.6 % (0-14.5); RETICULOCYTE % 1.28 % (0.50-2.50); WHITE BLOOD COUNT 9.7 10*3/uL (4.8-10.8)
[2020-04-07 09:57] LABS: ALBUMIN 2.8 gm/dl (3.1-4.5); CREATININE 1.74 mg/dL (0.70-1.30); POTASSIUM 4.2 mmol/L (3.5-5.1); TOTAL PROTEIN 8.3 gm/dL (6.4-8.2)
[2020-04-07 10:03] LABS: THYROID STIM HORMONE (HS) 3.01 uIU/ml (0.358-4.75)
[2020-04-07 10:27] LABS: FERRITIN 44.5 ng/mL (22.0-322.0); VITAMIN D, 25-HYDROXY 47.3 ng/mL (30-100)
[2020-04-07 10:42] LABS: BILIRUBIN NEGATIVE; BLOOD NEGATIVE (NEGATIVE); CLARITY CLEAR (CLEAR); COLOR YELLOW (YELLOW); GLUCOSE NEGATIVE; KETONE NEGATIVE; LEUKO ESTERASE NEGATIVE (NEGATIVE); NITRITE NEGATIVE (NEGATIVE); RBC 0-2 rbc/hpf (0-2); SPECIFIC GRAVITY 1.015 (1.001-1.030); UROBILINOGEN 0.2 E.U./dl (0.0-1.0); WBC 0-2 wbc/hpf (0-5)
[2020-04-07 10:43] LABS: EPITHELIAL CELLS 0-2
== END | disposition home or self-care (01) ==
LOC: LAB 08:55
PROVIDERS: ATTEND Family Medicine
DX: E55.9 Vitamin D deficiency, unspecified (principal); R79.89 Other specified abnormal findings of blood chemistry; R53.83 Other fatigue; E78.5 Hyperlipidemia, unspecified

== ENCOUNTER → 2020-06-23 | Outpatient (CLI) | payer BC, OTHER ==
[2020-06-23 12:10] LABS: BILIRUBIN Negative (Negative); BLOOD Trace-Lysed (Negative); CLARITY Clear (Clear); COLOR Yellow (Yellow); GLUCOSE Negative (Negative); KETONE Negative (Negative); LEUKO ESTERASE Negative (Negative); NITRITE Negative (Negative); SPECIFIC GRAVITY 1.025 (1.001-1.030); UROBILINOGEN 0.2 E.U./dl (0.0-1.0)
[2020-06-23 12:11] LABS: BASO % 0.4 % (0.0-1.0); EOS # 0.3 10*3/uL (0.0-0.4); EOS % 3.1 % (1.0-4.0); HEMATOCRIT 38.9 % (42.0-52.0); LYMPH # 2.9 10*3/uL (1.3-4.4); LYMPH % 30.4 % (27.0-41.0); MEAN CELL VOLUME 85.1 fl (80.0-94.0); MEAN CORPUSCULAR HGB 24.9 pg (27.0-31.0); MEAN CORPUSCULAR HGB CONC 29.3 g/dl (33.0-37.0); MEAN PLATELET VOLUME 8.7 fl (9.6-12.3); MONO # 0.7 10*3/uL (0.1-1.0); MONO % 7.6 % (3.0-9.0); NEUT # 5.5 10*3/uL (2.3-7.9); NEUT % 58.2 % (47.0-73.0); PLATELET COUNT AUTOMATED 357 10*3/uL (130-400); RED BLOOD COUNT 4.57 10*6/uL (4.50-5.90); RED CELL DISTRI WIDTH 15.4 % (0-14.5); WHITE BLOOD COUNT 9.4 10*3/uL (4.8-10.8)
[2020-06-23 12:23] LABS: ALBUMIN 2.8 gm/dl (3.1-4.5); CREATININE 1.51 mg/dL (0.70-1.30); POTASSIUM 4.1 mmol/L (3.5-5.1)
[2020-06-23 12:29] LABS: BACTERIA 2+; EPITHELIAL CELLS 0-2; MUCOUS 1+; WBC 0-2 wbc/hpf (0-5)
[2020-06-23 13:26] LABS: PTH INTACT 140.1 pg/mL (18.5-88.0)
== END | disposition home or self-care (01) ==
LOC: LAB 11:52
PROVIDERS: ATTEND Internal Medicine Nephrology
DX: N18.30 Chronic kidney disease, stage 3 unspecified (principal); N25.81 Secondary hyperparathyroidism of renal origin; E55.9 Vitamin D deficiency, unspecified

== ENCOUNTER 2020-06-26 12:32 | Emergency (ER) | payer BC, OTHER ==
[2020-06-26 13:31] LABS: BASO # 0.1 10*3/uL (0.0-0.1); BASO % 0.6 % (0.0-1.0); EOS # 0.3 10*3/uL (0.0-0.4); EOS % 2.4 % (1.0-4.0); HEMATOCRIT 38.7 % (42.0-52.0); LYMPH # 2.4 10*3/uL (1.3-4.4); LYMPH % 22.3 % (27.0-41.0); MEAN CELL VOLUME 84.1 fl (80.0-94.0); MEAN CORPUSCULAR HGB 24.8 pg (27.0-31.0); MEAN CORPUSCULAR HGB CONC 29.5 g/dl (33.0-37.0); MEAN PLATELET VOLUME 8.5 fl (9.6-12.3); MONO # 0.8 10*3/uL (0.1-1.0); MONO % 7.2 % (3.0-9.0); NEUT # 7.2 10*3/uL (2.3-7.9); PLATELET COUNT AUTOMATED 377 10*3/uL (130-400); RED CELL DISTRI WIDTH 15.3 % (0-14.5); WHITE BLOOD COUNT 10.8 10*3/uL (4.8-10.8)
[2020-06-26 13:44] LABS: ACT PARTIAL THROMBO TIME 23.4 SECONDS (20.0-32.1); INTERNATIONAL NORM RATIO 1.2 (2.0-3.5)
[2020-06-26 13:50] LABS: ALBUMIN 2.8 gm/dl (3.1-4.5); ALKALINE PHOSPHATASE 130 U/L (45-117); BUN 21 mg/dl (7-24); CHLORIDE 113 mmol/L (98-107); CREATININE 1.37 mg/dL (0.70-1.30); LIPASE 48 U/L (73-393); POTASSIUM 4.3 mmol/L (3.5-5.1); SGOT/AST 21 IU/L (3-35); SGPT/ALT 25 U/L (12-78); SODIUM 143 mmol/L (136-145); TOTAL PROTEIN 7.5 gm/dL (6.4-8.2)
[2020-06-26 13:54] LABS: TROPONIN I < 0.015 ng/ml (<0.045)
== END 2020-06-26 14:44 | disposition home or self-care (01) ==
LOC: ED 12:32
PROVIDERS: Emergency Medicine
DX: S00.83XA Contusion of other part of head, initial encounter (principal); R42 Dizziness and giddiness; Z79.899 Other long term (current) drug therapy; Z79.82 Long term (current) use of aspirin; W19.XXXA Unspecified fall, initial encounter; Y93.01 Activity, walking, marching and hiking; Y92.098 Other place in other non-institutional residence as the place of occurrence of the external cause; Y99.8 Other external cause status

== ENCOUNTER → 2020-08-03 | Outpatient (CLI) | payer BC, OTHER | END | disposition home or self-care (01) | LOC: WOUNDCARE 01:04 → EDSTATUS 23:22 | PROVIDERS: ATTEND Nurse Practitioner | DX: I87.332 Chronic venous hypertension (idiopathic) with ulcer and inflammation of left lower extremity (principal); E11.622 Type 2 diabetes mellitus with other skin ulcer; L97.822 Non-pressure chronic ulcer of other part of left lower leg with fat layer exposed; L97.812 Non-pressure chronic ulcer of other part of right lower leg with fat layer exposed; L97.311 Non-pressure chronic ulcer of right ankle limited to breakdown of skin; E11.59 Type 2 diabetes mellitus with other circulatory complications; A49.02 Methicillin resistant Staphylococcus aureus infection, unspecified site; Z79.891 Long term (current) use of opiate analgesic ==

== ENCOUNTER → 2020-08-10 | Outpatient (CLI) | payer BC, OTHER | LOC: WOUNDCARE 01:27 | PROVIDERS: ATTEND Nurse Practitioner | DX: I87.332 Chronic venous hypertension (idiopathic) with ulcer and inflammation of left lower extremity (principal); E11.622 Type 2 diabetes mellitus with other skin ulcer; L97.822 Non-pressure chronic ulcer of other part of left lower leg with fat layer exposed; L97.812 Non-pressure chronic ulcer of other part of right lower leg with fat layer exposed; L97.311 Non-pressure chronic ulcer of right ankle limited to breakdown of skin; E11.59 Type 2 diabetes mellitus with other circulatory complications; A49.02 Methicillin resistant Staphylococcus aureus infection, unspecified site; Z79.891 Long term (current) use of opiate analgesic ==

== ENCOUNTER → 2020-08-17 | Outpatient (CLI) | payer BC, OTHER | END | disposition home or self-care (01) | LOC: WOUNDCARE 01:20 | PROVIDERS: ATTEND Nurse Practitioner | DX: I87.333 Chronic venous hypertension (idiopathic) with ulcer and inflammation of bilateral lower extremity (principal); E11.622 Type 2 diabetes mellitus with other skin ulcer; L97.822 Non-pressure chronic ulcer of other part of left lower leg with fat layer exposed; L97.812 Non-pressure chronic ulcer of other part of right lower leg with fat layer exposed; L97.311 Non-pressure chronic ulcer of right ankle limited to breakdown of skin; L97.212 Non-pressure chronic ulcer of right calf with fat layer exposed; E11.59 Type 2 diabetes mellitus with other circulatory complications; A49.02 Methicillin resistant Staphylococcus aureus infection, unspecified site; Z79.891 Long term (current) use of opiate analgesic ==

== ENCOUNTER → 2020-08-24 | Outpatient (CLI) | payer BC, OTHER | END | disposition home or self-care (01) | LOC: WOUNDCARE 02:02 | PROVIDERS: ATTEND Nurse Practitioner | DX: I87.332 Chronic venous hypertension (idiopathic) with ulcer and inflammation of left lower extremity (principal); E11.622 Type 2 diabetes mellitus with other skin ulcer; L97.822 Non-pressure chronic ulcer of other part of left lower leg with fat layer exposed; L97.212 Non-pressure chronic ulcer of right calf with fat layer exposed; I87.311 Chronic venous hypertension (idiopathic) with ulcer of right lower extremity; L97.812 Non-pressure chronic ulcer of other part of right lower leg with fat layer exposed; E11.59 Type 2 diabetes mellitus with other circulatory complications; A49.02 Methicillin resistant Staphylococcus aureus infection, unspecified site; Z79.891 Long term (current) use of opiate analgesic ==

== ENCOUNTER → 2020-08-31 | Outpatient (CLI) | payer BC, OTHER | LOC: WOUNDCARE 01:38 | PROVIDERS: ATTEND Nurse Practitioner | DX: I87.332 Chronic venous hypertension (idiopathic) with ulcer and inflammation of left lower extremity (principal); E11.622 Type 2 diabetes mellitus with other skin ulcer; L97.822 Non-pressure chronic ulcer of other part of left lower leg with fat layer exposed; L97.212 Non-pressure chronic ulcer of right calf with fat layer exposed; L97.812 Non-pressure chronic ulcer of other part of right lower leg with fat layer exposed; E11.59 Type 2 diabetes mellitus with other circulatory complications; A49.02 Methicillin resistant Staphylococcus aureus infection, unspecified site; Z79.891 Long term (current) use of opiate analgesic ==

== ENCOUNTER → 2020-09-07 | Outpatient (CLI) | payer BC, OTHER | LOC: WOUNDCARE 00:47 | PROVIDERS: ATTEND Nurse Practitioner | DX: I87.322 Chronic venous hypertension (idiopathic) with inflammation of left lower extremity (principal); E11.622 Type 2 diabetes mellitus with other skin ulcer; L97.822 Non-pressure chronic ulcer of other part of left lower leg with fat layer exposed; L97.212 Non-pressure chronic ulcer of right calf with fat layer exposed; L97.812 Non-pressure chronic ulcer of other part of right lower leg with fat layer exposed; E11.9 Type 2 diabetes mellitus without complications; A49.02 Methicillin resistant Staphylococcus aureus infection, unspecified site; Z79.891 Long term (current) use of opiate analgesic ==

== ENCOUNTER → 2020-09-14 | Outpatient (CLI) | payer BC, OTHER | LOC: WOUNDCARE 01:38 | PROVIDERS: ATTEND Nurse Practitioner | DX: I87.333 Chronic venous hypertension (idiopathic) with ulcer and inflammation of bilateral lower extremity (principal); E11.622 Type 2 diabetes mellitus with other skin ulcer; L97.822 Non-pressure chronic ulcer of other part of left lower leg with fat layer exposed; L97.212 Non-pressure chronic ulcer of right calf with fat layer exposed; L97.812 Non-pressure chronic ulcer of other part of right lower leg with fat layer exposed; E11.9 Type 2 diabetes mellitus without complications; A49.02 Methicillin resistant Staphylococcus aureus infection, unspecified site; Z79.891 Long term (current) use of opiate analgesic ==

== ENCOUNTER → 2020-09-21 | Outpatient (CLI) | payer BC, OTHER | LOC: WOUNDCARE 00:35 | PROVIDERS: ATTEND Nurse Practitioner | DX: I87.333 Chronic venous hypertension (idiopathic) with ulcer and inflammation of bilateral lower extremity (principal); E11.622 Type 2 diabetes mellitus with other skin ulcer; L97.822 Non-pressure chronic ulcer of other part of left lower leg with fat layer exposed; L97.212 Non-pressure chronic ulcer of right calf with fat layer exposed; L97.812 Non-pressure chronic ulcer of other part of right lower leg with fat layer exposed; E11.59 Type 2 diabetes mellitus with other circulatory complications; A49.02 Methicillin resistant Staphylococcus aureus infection, unspecified site; Z79.891 Long term (current) use of opiate analgesic ==

== ENCOUNTER → 2020-09-28 | Outpatient (CLI) | payer BC, OTHER | LOC: WOUNDCARE 00:57 | PROVIDERS: ATTEND Nurse Practitioner | DX: I87.333 Chronic venous hypertension (idiopathic) with ulcer and inflammation of bilateral lower extremity (principal); E11.622 Type 2 diabetes mellitus with other skin ulcer; L97.822 Non-pressure chronic ulcer of other part of left lower leg with fat layer exposed; L97.212 Non-pressure chronic ulcer of right calf with fat layer exposed; E11.59 Type 2 diabetes mellitus with other circulatory complications; A49.02 Methicillin resistant Staphylococcus aureus infection, unspecified site; Z79.891 Long term (current) use of opiate analgesic ==

== ENCOUNTER → 2020-10-05 | Outpatient (CLI) | payer BC, OTHER | LOC: WOUNDCARE 02:14 | PROVIDERS: ATTEND Nurse Practitioner | DX: I87.333 Chronic venous hypertension (idiopathic) with ulcer and inflammation of bilateral lower extremity (principal); E11.622 Type 2 diabetes mellitus with other skin ulcer; L97.822 Non-pressure chronic ulcer of other part of left lower leg with fat layer exposed; L97.212 Non-pressure chronic ulcer of right calf with fat layer exposed; E11.59 Type 2 diabetes mellitus with other circulatory complications; A49.02 Methicillin resistant Staphylococcus aureus infection, unspecified site; Z79.891 Long term (current) use of opiate analgesic ==

== ENCOUNTER → 2020-10-12 | Outpatient (CLI) | payer BC, OTHER | LOC: WOUNDCARE 02:50 | PROVIDERS: ATTEND Nurse Practitioner | DX: I87.333 Chronic venous hypertension (idiopathic) with ulcer and inflammation of bilateral lower extremity (principal); E11.622 Type 2 diabetes mellitus with other skin ulcer; L97.822 Non-pressure chronic ulcer of other part of left lower leg with fat layer exposed; L97.212 Non-pressure chronic ulcer of right calf with fat layer exposed; E11.621 Type 2 diabetes mellitus with foot ulcer; L89.890 Pressure ulcer of other site, unstageable; L97.522 Non-pressure chronic ulcer of other part of left foot with fat layer exposed; E11.59 Type 2 diabetes mellitus with other circulatory complications; A49.02 Methicillin resistant Staphylococcus aureus infection, unspecified site; L03.116 Cellulitis of left lower limb; Z79.891 Long term (current) use of opiate analgesic ==

== ENCOUNTER → 2020-10-19 | Outpatient (CLI) | payer BC, OTHER | LOC: WOUNDCARE 03:59 | PROVIDERS: ATTEND Nurse Practitioner | DX: I87.332 Chronic venous hypertension (idiopathic) with ulcer and inflammation of left lower extremity (principal); E11.622 Type 2 diabetes mellitus with other skin ulcer; L97.822 Non-pressure chronic ulcer of other part of left lower leg with fat layer exposed; I87.311 Chronic venous hypertension (idiopathic) with ulcer of right lower extremity; L97.212 Non-pressure chronic ulcer of right calf with fat layer exposed; E11.621 Type 2 diabetes mellitus with foot ulcer; L89.890 Pressure ulcer of other site, unstageable; L97.522 Non-pressure chronic ulcer of other part of left foot with fat layer exposed; E11.59 Type 2 diabetes mellitus with other circulatory complications; A49.02 Methicillin resistant Staphylococcus aureus infection, unspecified site; L03.116 Cellulitis of left lower limb; Z79.891 Long term (current) use of opiate analgesic ==

== ENCOUNTER → 2020-10-27 | Outpatient (CLI) | payer BC, OTHER ==
[2020-10-27 10:30] LABS: BASO # 0.1 10*3/uL (0.0-0.1); BASO % 0.6 % (0.0-1.0); EOS # 0.4 10*3/uL (0.0-0.4); EOS % 3.3 % (1.0-4.0); LYMPH # 3.2 10*3/uL (1.3-4.4); LYMPH % 28.4 % (27.0-41.0); MEAN CELL VOLUME 83.3 fl (80.0-94.0); MEAN CORPUSCULAR HGB 25.4 pg (27.0-31.0); MEAN CORPUSCULAR HGB CONC 30.5 g/dl (33.0-37.0); MEAN PLATELET VOLUME 8.9 fl (9.6-12.3); MONO # 0.7 10*3/uL (0.1-1.0); MONO % 6.5 % (3.0-9.0); NEUT # 6.8 10*3/uL (2.3-7.9); NEUT % 61.1 % (47.0-73.0); PLATELET COUNT AUTOMATED 445 10*3/uL (130-400); RED BLOOD COUNT 5.28 10*6/uL (4.50-5.90); RED CELL DISTRI WIDTH 16.7 % (0-14.5); RETICULOCYTE % 1.38 % (0.50-2.50); WHITE BLOOD COUNT 11.2 10*3/uL (4.8-10.8)
[2020-10-27 10:46] LABS: BILIRUBIN Negative (Negative); BLOOD 1+ (Negative); CLARITY Clear (Clear); COLOR Yellow (Yellow); GLUCOSE Negative (Negative); KETONE Negative (Negative); LEUKO ESTERASE Negative (Negative); NITRITE Negative (Negative); PH 5.5 (4.5-8.0); UROBILINOGEN 0.2 E.U./dl (0.0-1.0)
[2020-10-27 10:53] LABS: ALKALINE PHOSPHATASE 180 U/L (45-117); BUN 22 mg/dl (7-24); CHLORIDE 107 mmol/L (98-107); CHOLESTEROL 179 mg/dL (<200); CREATININE 1.32 mg/dL (0.70-1.30); GAMMA GLUTAMYL TRANSPEPTIDASE 13 U/L (15-85); HDL CHOLESTEROL 40 mg/dl (40-60); IRON 47 ug/dL (65-175); LDL CHOLESTEROL 113 mg/dL (9-159); SGOT/AST 20 IU/L (3-35); SGPT/ALT 27 U/L (12-78); SODIUM 139 mmol/L (136-145); TOTAL IRON BINDING CAPACITY 326 ug/dl (250-450); TOTAL PROTEIN 7.9 gm/dL (6.4-8.2); TRIGLYCERIDES 128 mg/dl (<150); VLDL CHOLESTEROL 26 mg/dL (6-40)
[2020-10-27 11:00] LABS: CPK 85 U/L (39-308)
[2020-10-27 13:39] LABS: BACTERIA 1+; MUCOUS TRACE
== END | disposition home or self-care (01) ==
LOC: LAB 10:01
PROVIDERS: ATTEND Family Medicine
DX: E78.5 Hyperlipidemia, unspecified (principal); R53.83 Other fatigue; R79.89 Other specified abnormal findings of blood chemistry; E55.9 Vitamin D deficiency, unspecified; Z79.899 Other long term (current) drug therapy

== ENCOUNTER → 2020-10-27 | Outpatient (CLI) | payer BC, OTHER | LOC: WOUNDCARE 00:54 | PROVIDERS: ATTEND Nurse Practitioner | DX: I87.332 Chronic venous hypertension (idiopathic) with ulcer and inflammation of left lower extremity (principal); E11.621 Type 2 diabetes mellitus with foot ulcer; L89.890 Pressure ulcer of other site, unstageable; L97.522 Non-pressure chronic ulcer of other part of left foot with fat layer exposed; E11.622 Type 2 diabetes mellitus with other skin ulcer; L97.822 Non-pressure chronic ulcer of other part of left lower leg with fat layer exposed; I87.311 Chronic venous hypertension (idiopathic) with ulcer of right lower extremity; L97.212 Non-pressure chronic ulcer of right calf with fat layer exposed; E11.59 Type 2 diabetes mellitus with other circulatory complications; L03.116 Cellulitis of left lower limb; A49.02 Methicillin resistant Staphylococcus aureus infection, unspecified site; Z79.891 Long term (current) use of opiate analgesic ==

== ENCOUNTER → 2020-11-09 | Outpatient (CLI) | payer BC, OTHER | LOC: WOUNDCARE 02:00 | PROVIDERS: ATTEND Nurse Practitioner | DX: I87.332 Chronic venous hypertension (idiopathic) with ulcer and inflammation of left lower extremity (principal); E11.621 Type 2 diabetes mellitus with foot ulcer; L89.890 Pressure ulcer of other site, unstageable; L97.522 Non-pressure chronic ulcer of other part of left foot with fat layer exposed; E11.622 Type 2 diabetes mellitus with other skin ulcer; L97.822 Non-pressure chronic ulcer of other part of left lower leg with fat layer exposed; I87.311 Chronic venous hypertension (idiopathic) with ulcer of right lower extremity; L97.212 Non-pressure chronic ulcer of right calf with fat layer exposed; S81.801D Unspecified open wound, right lower leg, subsequent encounter; E11.59 Type 2 diabetes mellitus with other circulatory complications; L03.116 Cellulitis of left lower limb; A49.02 Methicillin resistant Staphylococcus aureus infection, unspecified site; Z87.891 Personal history of nicotine dependence ==

== ENCOUNTER → 2020-11-23 | Outpatient (CLI) | payer BC, OTHER | LOC: WOUNDCARE 09:42 | PROVIDERS: ATTEND Nurse Practitioner | DX: E11.622 Type 2 diabetes mellitus with other skin ulcer (principal); I87.311 Chronic venous hypertension (idiopathic) with ulcer of right lower extremity; L97.812 Non-pressure chronic ulcer of other part of right lower leg with fat layer exposed; L97.212 Non-pressure chronic ulcer of right calf with fat layer exposed; I87.322 Chronic venous hypertension (idiopathic) with inflammation of left lower extremity; L97.822 Non-pressure chronic ulcer of other part of left lower leg with fat layer exposed; E11.59 Type 2 diabetes mellitus with other circulatory complications; E11.621 Type 2 diabetes mellitus with foot ulcer; L89.890 Pressure ulcer of other site, unstageable; L98.491 Non-pressure chronic ulcer of skin of other sites limited to breakdown of skin; L03.116 Cellulitis of left lower limb; A49.02 Methicillin resistant Staphylococcus aureus infection, unspecified site; Z87.891 Personal history of nicotine dependence ==

== ENCOUNTER → 2020-11-30 | Outpatient (CLI) | payer BC, OTHER | LOC: WOUNDCARE 00:50 → EDSTATUS 15:05 → WOUNDCARE 15:05 | PROVIDERS: ATTEND Nurse Practitioner | DX: I87.311 Chronic venous hypertension (idiopathic) with ulcer of right lower extremity (principal); E11.622 Type 2 diabetes mellitus with other skin ulcer; L97.812 Non-pressure chronic ulcer of other part of right lower leg with fat layer exposed; L97.212 Non-pressure chronic ulcer of right calf with fat layer exposed; I87.322 Chronic venous hypertension (idiopathic) with inflammation of left lower extremity; L97.822 Non-pressure chronic ulcer of other part of left lower leg with fat layer exposed; E11.59 Type 2 diabetes mellitus with other circulatory complications; E11.621 Type 2 diabetes mellitus with foot ulcer; L89.890 Pressure ulcer of other site, unstageable; L98.491 Non-pressure chronic ulcer of skin of other sites limited to breakdown of skin; L03.116 Cellulitis of left lower limb; A49.02 Methicillin resistant Staphylococcus aureus infection, unspecified site; Z87.891 Personal history of nicotine dependence ==

== ENCOUNTER → 2020-11-30 | Outpatient (CLI) | payer BC, OTHER | END | disposition home or self-care (01) | LOC: LAB 09:17 | PROVIDERS: ATTEND Family Medicine | DX: R53.83 Other fatigue (principal); R79.89 Other specified abnormal findings of blood chemistry ==

== ENCOUNTER → 2020-12-19 | Outpatient (CLI) | payer BC, OTHER | END | disposition home or self-care (01) | LOC: CT 09:40 | PROVIDERS: ATTEND Internal Medicine Hematology & Oncology | DX: K80.20 Calculus of gallbladder without cholecystitis without obstruction (principal); J98.11 Atelectasis; I70.0 Atherosclerosis of aorta; I25.10 Atherosclerotic heart disease of native coronary artery without angina pectoris; K57.30 Diverticulosis of large intestine without perforation or abscess without bleeding; K40.90 Unilateral inguinal hernia, without obstruction or gangrene, not specified as recurrent; J98.4 Other disorders of lung ==

== ENCOUNTER → 2021-01-18 | Outpatient (CLI) | payer BC, OTHER | END | disposition home or self-care (01) | LOC: CARD 08:42 | PROVIDERS: ATTEND Internal Medicine Cardiovascular Disease | DX: Z01.810 Encounter for preprocedural cardiovascular examination (principal); I51.7 Cardiomegaly ==

== ENCOUNTER → 2021-01-26 | Outpatient (CLI) | payer BC, OTHER ==
[2021-01-26 09:38] LABS: BASO # 0.1 10*3/uL (0.0-0.1); BASO % 0.6 % (0.0-1.0); EOS # 0.4 10*3/uL (0.0-0.4); EOS % 3.8 % (1.0-4.0); LYMPH % 27.3 % (27.0-41.0); MEAN CELL VOLUME 85.4 fl (80.0-94.0); MEAN CORPUSCULAR HGB CONC 30.5 g/dl (33.0-37.0); MEAN PLATELET VOLUME 9.5 fl (9.6-12.3); MONO # 0.7 10*3/uL (0.1-1.0); MONO % 6.7 % (3.0-9.0); NEUT # 6.7 10*3/uL (2.3-7.9); NEUT % 61.3 % (47.0-73.0); PLATELET COUNT AUTOMATED 398 10*3/uL (130-400); RED BLOOD COUNT 5.15 10*6/uL (4.50-5.90); RED CELL DISTRI WIDTH 15.2 % (0-14.5)
[2021-01-26 09:43] LABS: BILIRUBIN Negative (Negative); BLOOD Negative (Negative); CLARITY Clear (Clear); COLOR Dark Yellow (Yellow); GLUCOSE Negative (Negative); KETONE Trace (Negative); LEUKO ESTERASE Negative (Negative); NITRITE Negative (Negative); PH 5.5 (4.5-8.0)
[2021-01-26 10:10] LABS: ALBUMIN 3.1 gm/dl (3.1-4.5); BUN 28 mg/dl (7-24); CHLORIDE 109 mmol/L (98-107); CREATININE 1.35 mg/dL (0.70-1.30); POTASSIUM 4.1 mmol/L (3.5-5.1); SODIUM 137 mmol/L (136-145)
[2021-01-26 10:42] LABS: BACTERIA TRACE; MUCOUS 1+; RBC 0-2 rbc/hpf (0-2); WBC 0-2 wbc/hpf (0-5)
[2021-01-26 11:17] LABS: VITAMIN D, 25-HYDROXY 27.2 ng/mL (30-100)
== END | disposition home or self-care (01) ==
LOC: LAB 09:09
PROVIDERS: ATTEND Internal Medicine Nephrology
DX: N18.30 Chronic kidney disease, stage 3 unspecified (principal); E55.9 Vitamin D deficiency, unspecified; N25.81 Secondary hyperparathyroidism of renal origin

== ENCOUNTER → 2021-05-01 | Outpatient (CLI) | payer BC, OTHER | END | disposition home or self-care (01) | LOC: CARD 00:06 | PROVIDERS: ATTEND Internal Medicine Cardiovascular Disease | DX: R06.00 Dyspnea, unspecified (principal); R06.02 Shortness of breath ==

== ENCOUNTER → 2021-07-27 | Outpatient (CLI) | payer BC, OTHER ==
[2021-07-27 10:30] LABS: BASO # 0.1 10*3/uL (0.0-0.1); BASO % 0.5 % (0.0-1.0); EOS # 0.4 10*3/uL (0.0-0.4); EOS % 2.8 % (1.0-4.0); HEMATOCRIT 46.2 % (42.0-52.0); LYMPH # 3.7 10*3/uL (1.3-4.4); MEAN CORPUSCULAR HGB 26.6 pg (27.0-31.0); MEAN CORPUSCULAR HGB CONC 30.5 g/dl (33.0-37.0); MEAN PLATELET VOLUME 9.6 fl (9.6-12.3); MONO # 0.8 10*3/uL (0.1-1.0); NEUT # 8.2 10*3/uL (2.3-7.9); NEUT % 62.3 % (47.0-73.0); PLATELET COUNT AUTOMATED 320 10*3/uL (130-400); RED BLOOD COUNT 5.31 10*6/uL (4.50-5.90); RED CELL DISTRI WIDTH 15.6 % (0-14.5); WHITE BLOOD COUNT 13.1 10*3/uL (4.8-10.8)
[2021-07-27 10:39] LABS: BILIRUBIN Negative (Negative); BLOOD Trace-Lysed (Negative); CLARITY Cloudy (Clear); COLOR Yellow (Yellow); GLUCOSE Negative (Negative); KETONE Negative (Negative); LEUKO ESTERASE Negative (Negative); NITRITE Negative (Negative); PH 5.5 (4.5-8.0); SPECIFIC GRAVITY 1.025 (1.001-1.030)
[2021-07-27 10:43] LABS: ALBUMIN 2.9 gm/dl (3.1-4.5); BUN 24 mg/dl (7-24); CHLORIDE 110 mmol/L (98-107); SODIUM 141 mmol/L (136-145)
[2021-07-27 11:20] LABS: BACTERIA 2+; MUCOUS 3+
[2021-07-27 11:53] LABS: PTH INTACT 137.3 pg/mL (18.5-88.0); VITAMIN D, 25-HYDROXY 18.9 ng/mL (30-100)
== END ==
LOC: LAB 10:07
PROVIDERS: ATTEND Internal Medicine Nephrology
DX: E55.9 Vitamin D deficiency, unspecified (principal)

== ENCOUNTER → 2021-08-10 | Day surgery (SDC) | payer BC, OTHER ==
[~2021-08-10] VITALS: Ht 172.7 cm; Wt 131.1 kg
[~2021-08-10] MED LIST changes: +HYDROCODONE-AC1 EAC1 PO; +HYDROXYZINE HCL25 MG PO; +MELOXICAM7.5 MG PO; +PROVENTIL HFA6.7 GM INH; +ZESTRIL20 MG PO
[2021-08-10 09:07] VITALS: BP 140/83
[2021-08-10 10:55] VITALS: BP 130/64
[2021-08-10 11:10] VITALS: BP 122/66
[2021-08-10 11:25] VITALS: BP 166/82
== END | disposition home or self-care (01) ==
LOC: SDC 08-06 13:15
PROVIDERS: ATTEND Surgery
DX: Z12.11 Encounter for screening for malignant neoplasm of colon (principal); K57.30 Diverticulosis of large intestine without perforation or abscess without bleeding; K40.90 Unilateral inguinal hernia, without obstruction or gangrene, not specified as recurrent; I25.10 Atherosclerotic heart disease of native coronary artery without angina pectoris; I10 Essential (primary) hypertension; E11.9 Type 2 diabetes mellitus without complications; F32.9 Major depressive disorder, single episode, unspecified; J45.909 Unspecified asthma, uncomplicated; K50.90 Crohn's disease, unspecified, without complications; Z86.73 Personal history of transient ischemic attack (TIA), and cerebral infarction without residual deficits; Z87.891 Personal history of nicotine dependence; Z79.899 Other long term (current) drug therapy; Z20.822 Contact with and (suspected) exposure to COVID-19

== ENCOUNTER → 2021-09-12 | Outpatient (CLI) | payer BC, OTHER | END | disposition home or self-care (01) | LOC: CT 10:13 | PROVIDERS: ATTEND Internal Medicine Hematology & Oncology | DX: R59.0 Localized enlarged lymph nodes (principal); K76.0 Fatty (change of) liver, not elsewhere classified; I25.10 Atherosclerotic heart disease of native coronary artery without angina pectoris; K80.80 Other cholelithiasis without obstruction; N28.1 Cyst of kidney, acquired; N28.89 Other specified disorders of kidney and ureter ==

== ENCOUNTER → 2021-12-06 | Outpatient (CLI) | payer OTHER ==
[2021-12-06 10:48] LABS: BILIRUBIN Negative (Negative); BLOOD Negative (Negative); CLARITY Clear (Clear); COLOR Yellow (Yellow); GLUCOSE Negative (Negative); KETONE Negative (Negative); LEUKO ESTERASE Trace (Negative); NITRITE Negative (Negative); PH 5.5 (4.5-8.0); SPECIFIC GRAVITY 1.015 (1.001-1.030)
[2021-12-06 10:49] LABS: BASO # 0.1 10*3/uL (0.0-0.1); BASO % 0.5 % (0.0-1.0); EOS # 0.4 10*3/uL (0.0-0.4); EOS % 3.4 % (1.0-4.0); LYMPH # 3.4 10*3/uL (1.3-4.4); LYMPH % 29.3 % (27.0-41.0); MEAN CELL VOLUME 84.3 fl (80.0-94.0); MEAN CORPUSCULAR HGB 26.1 pg (27.0-31.0); MEAN PLATELET VOLUME 9.2 fl (9.6-12.3); MONO # 0.8 10*3/uL (0.1-1.0); MONO % 6.9 % (3.0-9.0); NEUT # 6.9 10*3/uL (2.3-7.9); NEUT % 59.6 % (47.0-73.0); PLATELET COUNT AUTOMATED 454 10*3/uL (130-400); RED BLOOD COUNT 4.98 10*6/uL (4.50-5.90); RED CELL DISTRI WIDTH 14.3 % (0-14.5); RETICULOCYTE % 1.82 % (0.50-2.50); WHITE BLOOD COUNT 11.6 10*3/uL (4.8-10.8)
[2021-12-06 10:55] LABS: MUCOUS 3+
[2021-12-06 10:56] LABS: BACTERIA 1+
[2021-12-06 11:07] LABS: CREATININE 1.61 mg/dL (0.70-1.30); POTASSIUM 3.9 mmol/L (3.5-5.1); TOTAL PROTEIN 8.2 gm/dL (6.4-8.2)
[2021-12-06 11:13] LABS: THYROID STIM HORMONE (HS) 3.23 uIU/ml (0.358-4.75)
[2021-12-06 11:54] LABS: FERRITIN 15.3 ng/mL (22.0-322.0); VITAMIN D, 25-HYDROXY 32.9 ng/mL (30-100)
== END | disposition home or self-care (01) ==
LOC: LAB 10:18
PROVIDERS: ATTEND Family Medicine
DX: E78.5 Hyperlipidemia, unspecified (principal); R79.89 Other specified abnormal findings of blood chemistry; R53.83 Other fatigue; R74.8 Abnormal levels of other serum enzymes; E55.9 Vitamin D deficiency, unspecified

== ENCOUNTER → 2022-01-25 | Outpatient (CLI) | payer OTHER ==
[2022-01-25 10:07] LABS: BASO # 0.1 10*3/uL (0.0-0.1); BASO % 0.6 % (0.0-1.0); BILIRUBIN Negative (Negative); BLOOD Negative (Negative); CLARITY Clear (Clear); COLOR Yellow (Yellow); EOS # 0.4 10*3/uL (0.0-0.4); GLUCOSE Negative (Negative); KETONE Trace (Negative); LEUKO ESTERASE Negative (Negative); LYMPH # 2.9 10*3/uL (1.3-4.4); LYMPH % 30.9 % (27.0-41.0); MEAN CELL VOLUME 83.2 fl (80.0-94.0); MEAN PLATELET VOLUME 9.5 fl (9.6-12.3); MONO # 0.6 10*3/uL (0.1-1.0); MONO % 6.3 % (3.0-9.0); NEUT # 5.4 10*3/uL (2.3-7.9); NEUT % 58.1 % (47.0-73.0); NITRITE Negative (Negative); PH 5.5 (4.5-8.0); PLATELET COUNT AUTOMATED 383 10*3/uL (130-400); RED BLOOD COUNT 5.17 10*6/uL (4.50-5.90); WHITE BLOOD COUNT 9.3 10*3/uL (4.8-10.8)
[2022-01-25 10:20] LABS: CREATININE 1.56 mg/dL (0.70-1.30); POTASSIUM 4.2 mmol/L (3.5-5.1)
[2022-01-25 10:21] LABS: BACTERIA 2+; YEAST TRACE
[2022-01-26 07:51] LABS: VITAMIN D, 25-HYDROXY 46.9 ng/mL (30-100)
== END | disposition home or self-care (01) ==
LOC: LAB 09:43
PROVIDERS: ATTEND Internal Medicine Nephrology
DX: N18.30 Chronic kidney disease, stage 3 unspecified (principal); N25.81 Secondary hyperparathyroidism of renal origin; E55.9 Vitamin D deficiency, unspecified

== ENCOUNTER → 2022-02-27 | Outpatient (CLI) | payer OTHER ==
[2022-02-27 10:01] LABS: BASO # 0.1 10*3/uL (0.0-0.1); BASO % 0.6 % (0.0-1.0); EOS # 0.3 10*3/uL (0.0-0.4); HEMATOCRIT 42.6 % (42.0-52.0); LYMPH % 28.2 % (27.0-41.0); MEAN CELL VOLUME 82.6 fl (80.0-94.0); MEAN CORPUSCULAR HGB 25.2 pg (27.0-31.0); MEAN CORPUSCULAR HGB CONC 30.5 g/dl (33.0-37.0); MEAN PLATELET VOLUME 9.5 fl (9.6-12.3); MONO # 0.8 10*3/uL (0.1-1.0); MONO % 7.3 % (3.0-9.0); NEUT # 6.4 10*3/uL (2.3-7.9); NEUT % 60.6 % (47.0-73.0); PLATELET COUNT AUTOMATED 359 10*3/uL (130-400); RED BLOOD COUNT 5.16 10*6/uL (4.50-5.90); RED CELL DISTRI WIDTH 15.8 % (0-14.5); WHITE BLOOD COUNT 10.6 10*3/uL (4.8-10.8)
[2022-02-27 10:24] LABS: CREATININE 2.23 mg/dL (0.70-1.30); POTASSIUM 3.4 mmol/L (3.5-5.1); TOTAL PROTEIN 7.9 gm/dL (6.4-8.2)
== END | disposition home or self-care (01) ==
LOC: LAB 09:35
PROVIDERS: ATTEND Urology
DX: Z12.5 Encounter for screening for malignant neoplasm of prostate (principal); D40.0 Neoplasm of uncertain behavior of prostate; R53.83 Other fatigue

== ENCOUNTER → 2022-02-28 | Outpatient (CLI) | payer OTHER | END | disposition home or self-care (01) | LOC: CT 02-13 11:00 | PROVIDERS: ATTEND Urology | DX: K80.80 Other cholelithiasis without obstruction (principal); N28.1 Cyst of kidney, acquired; N26.1 Atrophy of kidney (terminal); I25.10 Atherosclerotic heart disease of native coronary artery without angina pectoris; K76.0 Fatty (change of) liver, not elsewhere classified; R59.9 Enlarged lymph nodes, unspecified ==

== ENCOUNTER → 2022-06-24 | Outpatient (CLI) | payer OTHER ==
[2022-06-24 11:26] LABS: BASO # 0.1 10*3/uL (0.0-0.1); BASO % 0.4 % (0.0-1.0); EOS # 0.3 10*3/uL (0.0-0.4); EOS % 2.9 % (1.0-4.0); HEMATOCRIT 41.9 % (42.0-52.0); LYMPH # 2.6 10*3/uL (1.3-4.4); LYMPH % 22.2 % (27.0-41.0); MEAN CELL VOLUME 85.7 fl (80.0-94.0); MEAN CORPUSCULAR HGB 26.8 pg (27.0-31.0); MEAN CORPUSCULAR HGB CONC 31.3 g/dl (33.0-37.0); MEAN PLATELET VOLUME 9.5 fl (9.6-12.3); MONO # 0.8 10*3/uL (0.1-1.0); MONO % 6.9 % (3.0-9.0); NEUT # 7.8 10*3/uL (2.3-7.9); NEUT % 67.3 % (47.0-73.0); PLATELET COUNT AUTOMATED 356 10*3/uL (130-400); RED BLOOD COUNT 4.89 10*6/uL (4.50-5.90); RED CELL DISTRI WIDTH 14.7 % (0-14.5); WHITE BLOOD COUNT 11.6 10*3/uL (4.8-10.8)
[2022-06-24 11:27] LABS: BILIRUBIN Negative (Negative); BLOOD Negative (Negative); CLARITY Clear (Clear); COLOR Yellow (Yellow); GLUCOSE Negative (Negative); KETONE Negative (Negative); LEUKO ESTERASE Negative (Negative); NITRITE Negative (Negative); PH 5.5 (4.5-8.0); UROBILINOGEN 0.2 E.U./dl (0.0-1.0)
[2022-06-24 11:43] LABS: CREATININE 2.1 mg/dL (0.70-1.30); POTASSIUM 3.4 mmol/L (3.5-5.1)
[2022-06-24 11:45] LABS: BACTERIA TRACE; MUCOUS TRACE
[2022-06-24 12:18] LABS: VITAMIN D, 25-HYDROXY 47.1 ng/mL (30-100)
== END | disposition home or self-care (01) ==
LOC: LAB 10:29
PROVIDERS: ATTEND Internal Medicine Nephrology
DX: N18.30 Chronic kidney disease, stage 3 unspecified (principal); E55.9 Vitamin D deficiency, unspecified; N25.81 Secondary hyperparathyroidism of renal origin

== ENCOUNTER → 2022-07-06 | Outpatient (CLI) | payer OTHER ==
[2022-07-06 10:08] LABS: CREATININE 1.46 mg/dL (0.70-1.30)
== END | disposition home or self-care (01) ==
LOC: LAB
PROVIDERS: ATTEND Family Medicine
DX: K76.0 Fatty (change of) liver, not elsewhere classified (principal)

== ENCOUNTER → 2022-07-08 | Outpatient (CLI) | payer OTHER | END | disposition home or self-care (01) | LOC: CT 06-27 08:00 | PROVIDERS: ATTEND Family Medicine | DX: K80.20 Calculus of gallbladder without cholecystitis without obstruction (principal); N28.1 Cyst of kidney, acquired; K57.30 Diverticulosis of large intestine without perforation or abscess without bleeding; J98.11 Atelectasis; R10.84 Generalized abdominal pain; K76.0 Fatty (change of) liver, not elsewhere classified ==

== ENCOUNTER → 2022-07-26 | Outpatient (CLI) | payer OTHER ==
[2022-07-26 10:36] LABS: BASO # 0.1 10*3/uL (0.0-0.1); BASO % 0.6 % (0.0-1.0); EOS # 0.5 10*3/uL (0.0-0.4); EOS % 4.1 % (1.0-4.0); LYMPH # 3.1 10*3/uL (1.3-4.4); LYMPH % 28.4 % (27.0-41.0); MEAN CELL VOLUME 86.7 fl (80.0-94.0); MEAN CORPUSCULAR HGB 26.6 pg (27.0-31.0); MEAN CORPUSCULAR HGB CONC 30.7 g/dl (33.0-37.0); MEAN PLATELET VOLUME 9.6 fl (9.6-12.3); MONO # 0.7 10*3/uL (0.1-1.0); MONO % 6.8 % (3.0-9.0); NEUT # 6.5 10*3/uL (2.3-7.9); NEUT % 59.8 % (47.0-73.0); PLATELET COUNT AUTOMATED 366 10*3/uL (130-400); RED BLOOD COUNT 4.96 10*6/uL (4.50-5.90); RED CELL DISTRI WIDTH 15.4 % (0-14.5); WHITE BLOOD COUNT 10.9 10*3/uL (4.8-10.8)
[2022-07-26 10:50] LABS: ALKALINE PHOSPHATASE 126 U/L (46-116); BUN 24 mg/dl (9-23); CHLORIDE 106 mmol/L (98-107); POTASSIUM 3.8 mmol/L (3.4-5.1); SGPT/ALT 15 U/L (10-49); TOTAL PROTEIN 7.6 gm/dL (6.0-8.0)
== END | disposition home or self-care (01) ==
LOC: LAB 10:03
PROVIDERS: ATTEND Internal Medicine
DX: I26.99 Other pulmonary embolism without acute cor pulmonale (principal); L97.909 Non-pressure chronic ulcer of unspecified part of unspecified lower leg with unspecified severity

== ENCOUNTER → 2022-11-27 | Outpatient (CLI) | payer OTHER ==
[2022-11-27 10:43] LABS: BILIRUBIN Negative (Negative); BLOOD Trace-Lysed (Negative); CLARITY Cloudy (Clear); COLOR Yellow (Yellow); GLUCOSE Negative (Negative); KETONE Trace (Negative); LEUKO ESTERASE Negative (Negative); NITRITE Negative (Negative); PH 5.5 (4.5-8.0)
[2022-11-27 10:45] LABS: BASO # 0.1 10*3/uL (0.0-0.1); BASO % 0.5 % (0.0-1.0); EOS # 0.3 10*3/uL (0.0-0.4); EOS % 2.9 % (1.0-4.0); HEMATOCRIT 43.8 % (42.0-52.0); LYMPH # 3.1 10*3/uL (1.3-4.4); LYMPH % 29.4 % (27.0-41.0); MEAN CELL VOLUME 85.2 fl (80.0-94.0); MEAN CORPUSCULAR HGB 25.5 pg (27.0-31.0); MEAN CORPUSCULAR HGB CONC 29.9 g/dl (33.0-37.0); MEAN PLATELET VOLUME 9.6 fl (9.6-12.3); MONO # 0.7 10*3/uL (0.1-1.0); MONO % 6.7 % (3.0-9.0); NEUT # 6.4 10*3/uL (2.3-7.9); NEUT % 60.2 % (47.0-73.0); PLATELET COUNT AUTOMATED 381 10*3/uL (130-400); RED BLOOD COUNT 5.14 10*6/uL (4.50-5.90); RED CELL DISTRI WIDTH 15.4 % (0-14.5); RETICULOCYTE % 1.65 % (0.50-2.50); WHITE BLOOD COUNT 10.6 10*3/uL (4.8-10.8)
[2022-11-27 11:04] LABS: HYALINE CAST 0-2; MUCOUS 4+
[2022-11-27 11:06] LABS: POTASSIUM 3.8 mmol/L (3.4-5.1); T3 UPTAKE 24.1 % (22.4-36.7); THYROID STIM HORMONE (HS) 4.719 uIU/ml (0.550-4.780); THYROXINE (T4) TOTAL 8.7 ug/dl (4.5-10.9); TOTAL PROTEIN 7.7 gm/dL (6.0-8.0)
== END | disposition home or self-care (01) ==
LOC: LAB 10:10
PROVIDERS: ATTEND Family Medicine
DX: R79.89 Other specified abnormal findings of blood chemistry (principal); R53.83 Other fatigue; E55.9 Vitamin D deficiency, unspecified

== ENCOUNTER → 2022-12-26 | Outpatient (CLI) | payer OTHER | END | disposition home or self-care (01) | LOC: US 00:32 | PROVIDERS: ATTEND Family Medicine | DX: N43.3 Hydrocele, unspecified (principal); N50.3 Cyst of epididymis; K76.0 Fatty (change of) liver, not elsewhere classified ==

== ENCOUNTER → 2023-01-03 | Outpatient (CLI) | payer OTHER ==
[2023-01-03 11:01] LABS: BASO # 0.1 10*3/uL (0.0-0.1); BASO % 0.6 % (0.0-1.0); EOS # 0.2 10*3/uL (0.0-0.4); EOS % 2.8 % (1.0-4.0); HEMATOCRIT 45.3 % (42.0-52.0); LYMPH # 2.1 10*3/uL (1.3-4.4); LYMPH % 26.3 % (27.0-41.0); MEAN CELL VOLUME 85.3 fl (80.0-94.0); MEAN CORPUSCULAR HGB 25.6 pg (27.0-31.0); MEAN PLATELET VOLUME 10.2 fl (9.6-12.3); MONO # 0.7 10*3/uL (0.1-1.0); MONO % 8.9 % (3.0-9.0); NEUT # 4.9 10*3/uL (2.3-7.9); PLATELET COUNT AUTOMATED 375 10*3/uL (130-400); RED BLOOD COUNT 5.31 10*6/uL (4.50-5.90); RED CELL DISTRI WIDTH 16.5 % (0-14.5)
[2023-01-03 11:25] LABS: POTASSIUM 3.8 mmol/L (3.4-5.1); TOTAL PROTEIN 7.6 gm/dL (6.0-8.0)
== END | disposition home or self-care (01) ==
LOC: LAB 10:09 → CT 11:00
PROVIDERS: ATTEND Urology
DX: R59.9 Enlarged lymph nodes, unspecified (principal); D40.0 Neoplasm of uncertain behavior of prostate; R53.83 Other fatigue; K76.0 Fatty (change of) liver, not elsewhere classified; K80.20 Calculus of gallbladder without cholecystitis without obstruction; K57.90 Diverticulosis of intestine, part unspecified, without perforation or abscess without bleeding; N28.89 Other specified disorders of kidney and ureter; N28.1 Cyst of kidney, acquired; I25.10 Atherosclerotic heart disease of native coronary artery without angina pectoris; I70.0 Atherosclerosis of aorta

== ENCOUNTER → 2023-03-18 | Outpatient (CLI) | payer OTHER ==
[2023-03-18 10:11] LABS: BASO % 0.4 % (0.0-1.0); EOS # 0.3 10*3/uL (0.0-0.4); EOS % 3.4 % (1.0-4.0); HEMATOCRIT 42.6 % (42.0-52.0); LYMPH # 3.1 10*3/uL (1.3-4.4); LYMPH % 31.3 % (27.0-41.0); MEAN CELL VOLUME 87.1 fl (80.0-94.0); MEAN CORPUSCULAR HGB 26.4 pg (27.0-31.0); MEAN CORPUSCULAR HGB CONC 30.3 g/dl (33.0-37.0); MEAN PLATELET VOLUME 9.9 fl (9.6-12.3); MONO # 0.7 10*3/uL (0.1-1.0); MONO % 7.1 % (3.0-9.0); NEUT # 5.7 10*3/uL (2.3-7.9); NEUT % 57.5 % (47.0-73.0); PLATELET COUNT AUTOMATED 321 10*3/uL (130-400); RED BLOOD COUNT 4.89 10*6/uL (4.50-5.90); RED CELL DISTRI WIDTH 15.8 % (0-14.5); WHITE BLOOD COUNT 9.9 10*3/uL (4.8-10.8)
[2023-03-18 10:16] LABS: BILIRUBIN Negative (Negative); BLOOD Negative (Negative); CLARITY Clear (Clear); COLOR Yellow (Yellow); GLUCOSE Negative (Negative); KETONE Negative (Negative); LEUKO ESTERASE Negative (Negative); NITRITE Negative (Negative); PH 5.5 (4.5-8.0)
[2023-03-18 10:22] LABS: URINE CREATININE RANDOM 157.24 mg/dL
[2023-03-18 10:27] LABS: BACTERIA 1+; EPITHELIAL CELLS 0-2; FINE GRANULAR CAST 0-2; HYALINE CAST 0-2; MUCOUS 1+
[2023-03-18 10:28] LABS: RBC 0-2 rbc/hpf (0-2)
[2023-03-18 10:41] LABS: BUN 18 mg/dl (9-23); CHLORIDE 108 mmol/L (98-107); POTASSIUM 3.9 mmol/L (3.4-5.1)
[2023-03-18 11:23] LABS: VITAMIN D, 25-HYDROXY 66.1 ng/mL (30-100)
== END | disposition home or self-care (01) ==
LOC: LAB 09:35
PROVIDERS: ATTEND Internal Medicine Nephrology
DX: N18.30 Chronic kidney disease, stage 3 unspecified (principal); N25.81 Secondary hyperparathyroidism of renal origin; E55.9 Vitamin D deficiency, unspecified

== ENCOUNTER 2023-06-14 10:54 | Emergency (ER) | payer MEDICARE ==
[~2023-06-14] VITALS: Ht 172.7 cm; Wt 154.2 kg
[2023-06-14] MEDS ORDERED: PERCOCET 5-3251 EACH PO (12:51)
== END 2023-06-14 13:45 | disposition home or self-care (01) ==
LOC: ED 10:54
DX: S42.342A Displaced spiral fracture of shaft of humerus, left arm, initial encounter for closed fracture (principal); S09.90XA Unspecified injury of head, initial encounter; E11.9 Type 2 diabetes mellitus without complications; I25.10 Atherosclerotic heart disease of native coronary artery without angina pectoris; I10 Essential (primary) hypertension; E78.5 Hyperlipidemia, unspecified; J45.909 Unspecified asthma, uncomplicated; K21.9 Gastro-esophageal reflux disease without esophagitis; Z98.890 Other specified postprocedural states; W03.XXXA Other fall on same level due to collision with another person, initial encounter; Y93.89 Activity, other specified; Y92.009 Unspecified place in unspecified non-institutional (private) residence as the place of occurrence of the external cause; Y99.8 Other external cause status

== ENCOUNTER → 2023-07-02 | Outpatient (CLI) | payer MEDICARE ==
[~2023-07-02] MED LIST changes: +PERCOCET 5-3251 EACH PO
== END | disposition home or self-care (01) ==
LOC: ORTHO 00:53
PROVIDERS: ATTEND Orthopaedic Surgery
DX: S42.342D Displaced spiral fracture of shaft of humerus, left arm, subsequent encounter for fracture with routine healing (principal); X58.XXXD Exposure to other specified factors, subsequent encounter

== ENCOUNTER → 2023-07-08 | Day surgery (SDC) | payer MEDICARE ==
[2023-07-07 13:14] VITALS: BP 104/57
[2023-07-07 14:02] LABS: BASO # 0.1 10*3/uL (0.0-0.1); BASO % 0.5 % (0.0-1.0); EOS # 0.3 10*3/uL (0.0-0.4); EOS % 2.2 % (1.0-4.0); HEMATOCRIT 39.7 % (42.0-52.0); LYMPH # 1.4 10*3/uL (1.3-4.4); LYMPH % 10.7 % (27.0-41.0); MEAN CELL VOLUME 85.2 fl (80.0-94.0); MEAN CORPUSCULAR HGB 25.3 pg (27.0-31.0); MEAN CORPUSCULAR HGB CONC 29.7 g/dl (33.0-37.0); MEAN PLATELET VOLUME 9.2 fl (9.6-12.3); MONO # 0.7 10*3/uL (0.1-1.0); MONO % 5.6 % (3.0-9.0); NEUT # 10.4 10*3/uL (2.3-7.9); NEUT % 79.2 % (47.0-73.0); PLATELET COUNT AUTOMATED 521 10*3/uL (130-400); RED BLOOD COUNT 4.66 10*6/uL (4.50-5.90); RED CELL DISTRI WIDTH 15.8 % (0-14.5); WHITE BLOOD COUNT 13.1 10*3/uL (4.8-10.8)
[2023-07-07 14:15] LABS: ACT PARTIAL THROMBO TIME 23.8 SECONDS (20.0-32.1)
[2023-07-07 14:20] LABS: BUN 16 mg/dl (9-23); CHLORIDE 103 mmol/L (98-107); POTASSIUM 4.4 mmol/L (3.4-5.1)
[2023-07-07 14:58] LABS: BILIRUBIN Negative (Negative); BLOOD Negative (Negative); CLARITY Clear (Clear); COLOR Yellow (Yellow); GLUCOSE Negative (Negative); KETONE Negative (Negative); LEUKO ESTERASE Negative (Negative); NITRITE Negative (Negative); SPECIFIC GRAVITY 1.015 (1.001-1.030); UROBILINOGEN 0.2 E.U./dl (0.0-1.0)
[2023-07-07 15:38] LABS: EPITHELIAL CELLS 0-2; WBC 0-2 wbc/hpf (0-5)
[~2023-07-08] VITALS: Ht 172.7 cm; Wt 154.2 kg
== END | disposition home or self-care (01) ==
LOC: SDC 07-07 12:30
PROVIDERS: ATTEND Orthopaedic Surgery
DX: S42.352A Displaced comminuted fracture of shaft of humerus, left arm, initial encounter for closed fracture (principal); M97.32XA Periprosthetic fracture around internal prosthetic left shoulder joint, initial encounter; I10 Essential (primary) hypertension; J45.909 Unspecified asthma, uncomplicated; E11.9 Type 2 diabetes mellitus without complications; K21.9 Gastro-esophageal reflux disease without esophagitis; Z86.73 Personal history of transient ischemic attack (TIA), and cerebral infarction without residual deficits; Z86.711 Personal history of pulmonary embolism; X58.XXXA Exposure to other specified factors, initial encounter; Y93.89 Activity, other specified; Y92.89 Other specified places as the place of occurrence of the external cause; Y99.8 Other external cause status; Z53.8 Procedure and treatment not carried out for other reasons

== ENCOUNTER → 2023-07-25 | Outpatient (CLI) | payer MEDICARE | END | disposition home or self-care (01) | LOC: ORTHO 00:57 | PROVIDERS: ATTEND Orthopaedic Surgery | DX: S42.352D Displaced comminuted fracture of shaft of humerus, left arm, subsequent encounter for fracture with routine healing (principal); X58.XXXD Exposure to other specified factors, subsequent encounter ==

== ENCOUNTER → 2023-08-29 | Outpatient (CLI) | payer MEDICARE | END | disposition home or self-care (01) | LOC: ORTHO 00:36 | PROVIDERS: ATTEND Orthopaedic Surgery | DX: S42.352A Displaced comminuted fracture of shaft of humerus, left arm, initial encounter for closed fracture (principal); X58.XXXA Exposure to other specified factors, initial encounter; Y93.89 Activity, other specified; Y92.89 Other specified places as the place of occurrence of the external cause; Y99.8 Other external cause status ==

== ENCOUNTER → 2023-09-16 | Outpatient (CLI) | payer MEDICARE | END | disposition home or self-care (01) | LOC: CT 09-12 13:00 | PROVIDERS: ATTEND Orthopaedic Surgery | DX: S42.402A Unspecified fracture of lower end of left humerus, initial encounter for closed fracture (principal); S42.352A Displaced comminuted fracture of shaft of humerus, left arm, initial encounter for closed fracture; M19.012 Primary osteoarthritis, left shoulder; Z96.612 Presence of left artificial shoulder joint; X58.XXXA Exposure to other specified factors, initial encounter; Y93.89 Activity, other specified; Y92.89 Other specified places as the place of occurrence of the external cause; Y99.8 Other external cause status ==

== ENCOUNTER → 2024-04-05 | Outpatient (CLI) | payer OTHER ==
[2024-04-05 11:31] LABS: BASO # 0.1 10*3/uL (0.0-0.1); BASO % 0.8 % (0.0-1.0); BILIRUBIN Negative (Negative); BLOOD Negative (Negative); CLARITY Clear (Clear); COLOR Yellow (Yellow); EOS # 0.3 10*3/uL (0.0-0.4); EOS % 3.3 % (1.0-4.0); GLUCOSE Negative (Negative); HEMATOCRIT 42.8 % (42.0-52.0); KETONE Negative (Negative); LEUKO ESTERASE Negative (Negative); LYMPH # 2.6 10*3/uL (1.3-4.4); LYMPH % 29.8 % (27.0-41.0); MEAN CELL VOLUME 87.3 fl (80.0-94.0); MEAN CORPUSCULAR HGB 27.3 pg (27.0-31.0); MEAN CORPUSCULAR HGB CONC 31.3 g/dl (33.0-37.0); MEAN PLATELET VOLUME 9.6 fl (9.6-12.3); MONO # 0.6 10*3/uL (0.1-1.0); MONO % 6.9 % (3.0-9.0); NEUT # 5.2 10*3/uL (2.3-7.9); NITRITE Negative (Negative); PH 5.5 (4.5-8.0); PLATELET COUNT AUTOMATED 406 10*3/uL (130-400); RED CELL DISTRI WIDTH 16.8 % (0-14.5); RETICULOCYTE % 1.57 % (0.50-2.50); SPECIFIC GRAVITY 1.015 (1.001-1.030); UROBILINOGEN 0.2 E.U./dl (0.0-1.0); WHITE BLOOD COUNT 8.9 10*3/uL (4.8-10.8)
[2024-04-05 11:41] LABS: MUCOUS 1+
[2024-04-05 12:15] LABS: ALKALINE PHOSPHATASE 149 U/L (46-116); BUN 15 mg/dl (9-23); CHLORIDE 107 mmol/L (98-107); CHOLESTEROL 157 mg/dL (<200); GAMMA GLUTAMYL TRANSPEPTIDASE 23 U/L (0-73); LDL CHOLESTEROL 95 mg/dL (9-159); POTASSIUM 3.9 mmol/L (3.4-5.1); SGPT/ALT 13 U/L (5-49); TOTAL PROTEIN 7.8 gm/dL (6.0-8.0); TRIGLYCERIDES 121 mg/dl (<150)
[2024-04-05 12:17] LABS: VITAMIN D, 25-HYDROXY 70.2 ng/mL (30-100)
== END | disposition home or self-care (01) ==
LOC: LAB 10:50
PROVIDERS: ATTEND Family Medicine
DX: Z12.5 Encounter for screening for malignant neoplasm of prostate (principal); R53.83 Other fatigue; R79.89 Other specified abnormal findings of blood chemistry; E78.5 Hyperlipidemia, unspecified; E55.9 Vitamin D deficiency, unspecified

== ENCOUNTER → 2024-05-31 | Outpatient (CLI) | payer OTHER | END | disposition home or self-care (01) | LOC: WOUNDCARE 01:18 | PROVIDERS: ATTEND Nurse Practitioner Family | DX: I87.333 Chronic venous hypertension (idiopathic) with ulcer and inflammation of bilateral lower extremity (principal); E11.622 Type 2 diabetes mellitus with other skin ulcer; L97.811 Non-pressure chronic ulcer of other part of right lower leg limited to breakdown of skin; L97.821 Non-pressure chronic ulcer of other part of left lower leg limited to breakdown of skin; E11.51 Type 2 diabetes mellitus with diabetic peripheral angiopathy without gangrene; I89.0 Lymphedema, not elsewhere classified; E11.29 Type 2 diabetes mellitus with other diabetic kidney complication; B35.1 Tinea unguium; R21 Rash and other nonspecific skin eruption; E66.9 Obesity, unspecified; Q80.0 Ichthyosis vulgaris; Z86.73 Personal history of transient ischemic attack (TIA), and cerebral infarction without residual deficits; Z79.01 Long term (current) use of anticoagulants; Z87.891 Personal history of nicotine dependence; Z86.718 Personal history of other venous thrombosis and embolism; Z86.711 Personal history of pulmonary embolism ==

== ENCOUNTER → 2024-06-08 | Outpatient (CLI) | payer OTHER | END | disposition home or self-care (01) | LOC: WOUNDCARE 01:15 | PROVIDERS: ATTEND Nurse Practitioner Family | DX: E11.622 Type 2 diabetes mellitus with other skin ulcer (principal); L97.812 Non-pressure chronic ulcer of other part of right lower leg with fat layer exposed; L97.822 Non-pressure chronic ulcer of other part of left lower leg with fat layer exposed; R21 Rash and other nonspecific skin eruption; E11.51 Type 2 diabetes mellitus with diabetic peripheral angiopathy without gangrene; E11.29 Type 2 diabetes mellitus with other diabetic kidney complication; I10 Essential (primary) hypertension; I89.0 Lymphedema, not elsewhere classified; Q80.0 Ichthyosis vulgaris; B35.1 Tinea unguium; E66.9 Obesity, unspecified; Z68.41 Body mass index [BMI] 40.0-44.9, adult; Z87.891 Personal history of nicotine dependence; Z86.73 Personal history of transient ischemic attack (TIA), and cerebral infarction without residual deficits; Z98.62 Peripheral vascular angioplasty status; Z79.01 Long term (current) use of anticoagulants; Z79.02 Long term (current) use of antithrombotics/antiplatelets; Z79.82 Long term (current) use of aspirin; Z79.899 Other long term (current) drug therapy ==

== ENCOUNTER 2024-08-14 17:19 | Emergency (ER) | payer OTHER ==
[~2024-08-14] VITALS: Wt 191.4 kg
== END 2024-08-14 17:35 ==
LOC: ED 17:19
DX: I46.9 Cardiac arrest, cause unspecified (principal); E78.5 Hyperlipidemia, unspecified; E11.22 Type 2 diabetes mellitus with diabetic chronic kidney disease; I12.9 Hypertensive chronic kidney disease with stage 1 through stage 4 chronic kidney disease, or unspecified chronic kidney disease; N18.9 Chronic kidney disease, unspecified; J45.909 Unspecified asthma, uncomplicated; K21.9 Gastro-esophageal reflux disease without esophagitis; Z90.49 Acquired absence of other specified parts of digestive tract; Z98.890 Other specified postprocedural states